=== PATIENT | female | born 1935 | race Caucasian/White ===

== ENCOUNTER 2017-01-22 06:18 | Day surgery (SDC) | payer MEDICARE, BC ==
[~2017-01-22 06:18] MED LIST: Midazolam 1 MG/ML 2 ML SDV ONE; fentaNYL 100 MCG/2 ML SDV ONE
[2017-01-22] MEDS ORDERED: fentaNYL 100 MCG/2 ML SDV IV ONE ×3 (06:19→07:36)
[2017-01-22] MEDS ORDERED: Midazolam 1 MG/ML 2 ML SDV IV ONE ×2 (06:19→07:36)
[2017-01-22] MEDS ORDERED: Sodium Chloride 0.9% 10 ML Syringe FLUSH PRN (06:22)
[2017-01-22] MEDS ORDERED: Dextrose 5%-0.45% NaCl 1,000 ML IV SCH (06:30)
--- NOTE | 2017-01-22 12:05 | OR ---
DATE: 01/22/2017 PROCEDURE: Esophagogastroduodenoscopy and multiple pinch biopsies. INSTRUMENT USED: GIF-H180 Olympus video panendoscope. PREMEDICATIONS: No oral topical anesthesia used. Fentanyl 100 mcg intravenous, Versed 1 mg intravenous. Nasal 2 L O2 cannula. The procedure was done under pulse oximetry, BP recording, and learning administrator. INDICATION: The patient with unexplained iron-deficiency anemia. Esophagogastroduodenoscopy is performed for detection of any active erosive lesions, malignancy also under consideration, H. pylori status to be determined, small bowel biopsies to be obtained for celiac disease if indicated, endoscopic hemostasis therapy if needed. DESCRIPTION OF PROCEDURE: The scope was passed with ease. Adequate visualization of the esophagus was made from proximal to distal areas. No upper esophageal lesions identified. No distal esophageal stricture. No uphill or downhill esophageal varices. No Felipa-Nichole tear. No evidence of erosive esophagitis by Griggs criteria. No esophageal polyp or tumor mass identified. Z-line was seen at around 40 cm distal to the oral verge, configuration consistent with grade 1 by ZAP classification. No proximal gastric varices noted. Gastric fundus examination by retroflexion showed no polypoid lesions, no gastric ulcer, malignant mass, or vascular ectasia identified. Duodenal bulb showed no ulcer. Visualized second part of the duodenum was unremarkable. Multiple pinch biopsies 4 in number were taken from different areas of the second part of the duodenum, and tissues were also obtained from the duodenal bulb at 9 and 12 o'clock positions and sent for histopathologic evidence of celiac disease. Multiple pinch biopsies were taken from the gastric antrum and proximal body and sent for PyloriTek test for H. pylori and histopathology. No bleeding was noted from any of the visualized areas at the completion of examination. Photographs were taken of the duodenal bulb, gastric antrum, fundus, and distal esophagus. IMPRESSION: Normal study. The patient tolerated the procedure well. [facility] /[id number]
[2017-01-22 12:23] VITALS: BP 123/47
--- NOTE | 2017-01-22 12:40 | LETTER ---
01/22/2017 Klaudia Braun MD [facility] [address] [place] [id number] RE: SHERLEY LORENZO KAVON : [address] Braun: Ms. Sherley Lorenzo had esophagogastroduodenoscopy done this morning and she tolerated the procedure well. I herewith send a copy of the endoscopy note and photographs for your review. Thank you. Sincerely, [facility] /[id number]
== END 2017-01-22 09:52 | disposition home or self-care (01) ==
LOC: DL.ENDO 06:18
PROVIDERS: ATTEND Internal Medicine Gastroenterology
DX: K29.50 Unspecified chronic gastritis without bleeding (principal); E66.9 Obesity, unspecified; I10 Essential (primary) hypertension; E78.5 Hyperlipidemia, unspecified; R73.9 Hyperglycemia, unspecified; E03.9 Hypothyroidism, unspecified; F41.9 Anxiety disorder, unspecified; K21.9 Gastro-esophageal reflux disease without esophagitis; Z90.49 Acquired absence of other specified parts of digestive tract; Z88.8 Allergy status to other drugs, medicaments and biological substances; Z87.891 Personal history of nicotine dependence; Z90.710 Acquired absence of both cervix and uterus; Z98.890 Other specified postprocedural states; Z68.30 Body mass index [BMI] 30.0-30.9, adult
CPT/HCPCS: 43239; 87077; J1642; J2250; J3010; J7042; J7050; 88305

== ENCOUNTER 2017-01-29 05:47 | Day surgery (SDC) | payer MEDICARE, BC ==
[2017-01-29] MEDS ORDERED: Dextrose 5%-0.45% NaCl 1,000 ML IV SCH (06:00)
[2017-01-29] MEDS ORDERED: fentaNYL 100 MCG/2 ML SDV ONE (06:17)
[2017-01-29] MEDS ORDERED: Midazolam 1 MG/ML 2 ML SDV ONE (06:17)
[2017-01-29] MEDS: Sodium Chloride 0.9% 10 ML Syringe FLUSH PRN ×2 (06:35→09:18)
[2017-01-29] MEDS ORDERED: fentaNYL 100 MCG/2 ML SDV IV ONE ×4 (07:01→07:28)
[2017-01-29] MEDS ORDERED: Midazolam 1 MG/ML 2 ML SDV IV ONE ×7 (07:02→07:26)
--- NOTE | 2017-01-29 08:16 | OR ---
DATE: 01/29/2017 PROCEDURE: Total colonoscopy. INSTRUMENT USED: PCF-H180 [place] Olympus video colonoscope. PREMEDICATIONS: Fentanyl 150 mcg intravenous, Versed 4 mg intravenous. Nasal O2 cannula. The procedure was done under pulse oximetry, BP recording, and rigging man. INDICATION: The patient with unexplained iron deficiency anemia. Colonoscopic examination is done for detection of any polypoid lesions and removal, endoscopic hemostasis therapy if needed. DESCRIPTION OF PROCEDURE: Initial rectal exam was unremarkable. Rigid anoscopy was normal. The colonoscope was passed with ease. Numerous scattered diverticula were noted in the distal left colon along with significant deformity, requiring some prolonged distal examination. The scope was then passed with ease up to the ileocecal area. No bleeding was noted from any of the visualized areas at the commencement of the examination. Photographs were taken of the normal-appearing cecum, identified by double-bulged ileocecal folds. No vascular ectasia. No large isolated ulcerations seen. No evidence of diffuse inflammatory bowel disease in the form of friability, contact bleeding, or ulcerations. No polyp or tumor mass identified. Probing the proximal sides of folds and flexures, using adequate distention and clearing up the stool material, withdrawal of the scope was made. Cecum to rectum time over 6 minutes. No bleeding was noted from any of the visualized areas at the completion of examination. IMPRESSION: Diverticulosis. The patient tolerated the procedure well. [facility] /[id number]
[2017-01-29 09:25] VITALS: BP 129/54
--- NOTE | 2017-01-29 11:34 | LETTER ---
01/29/2017 Klaudia Braun MD [facility] [address] [place] [address] RE: SHERLEY LORENZO KAVON : [address] Braun: Ms. Sherley Lorenzo had colonoscopic examination done this morning and she tolerated the procedure well. I herewith send a copy of the endoscopy note and photographs for your review. Thank you. Sincerely, [facility] /[id number]
== END 2017-01-29 09:35 | disposition home or self-care (01) ==
LOC: DL.ENDO 05:47
PROVIDERS: ATTEND Internal Medicine Gastroenterology
DX: K57.30 Diverticulosis of large intestine without perforation or abscess without bleeding (principal); I10 Essential (primary) hypertension; E78.5 Hyperlipidemia, unspecified; R73.9 Hyperglycemia, unspecified; K21.9 Gastro-esophageal reflux disease without esophagitis; E03.9 Hypothyroidism, unspecified; E66.9 Obesity, unspecified; Z88.8 Allergy status to other drugs, medicaments and biological substances; Z87.891 Personal history of nicotine dependence; Z90.49 Acquired absence of other specified parts of digestive tract; Z90.710 Acquired absence of both cervix and uterus; Z98.890 Other specified postprocedural states; Z68.26 Body mass index [BMI] 26.0-26.9, adult
CPT/HCPCS: 45378; J1642; J2250; J3010; J7042; J7050

== ENCOUNTER 2017-04-02 10:13 | Emergency (ER) | payer MEDICARE, BC ==
[2017-04-02] MEDS ORDERED: Sodium Chloride 0.9% 10 ML Syringe FLUSH PRN (10:17)
--- NOTE | 2017-04-02 10:17 | EDM.PDOC ---
ED HPI GENERAL MEDICAL PROBLEM - General Chief Complaint: Cardiovascular Problem Stated Complaint: HEART RYTHYM OUT OF WACK Time Seen by Provider: 04/02/17 10:16 Source of Information: Reports: Patient, RN, RN Notes Reviewed History Limitations: Reports: No Limitations - History of Present Illness INITIAL COMMENTS - FREE TEXT/NARRATIVE: Pt presents to ER with c/o fluttering in her chest. She states this began about 0400 today. She states she has atrial fibrillation that "flips in and out". She states She states she took a Lorazepam earlier and was able to go back to sleep , but the fluttering continues in the chest. She denies chest pain or sob, states just the fluttering feeling, which gives her gas and she then belches a lot. Onset: Today, Sudden Onset Date: 04/02/17 Onset Time: 04:00 Duration: Constant Location: Reports: Chest Quality: Reports: Dull, Other (fluttering) Severity: Mild Improves with: Reports: None Worsens with: Reports: None Associated Symptoms: Reports: No Other Symptoms - Related Data Allergies Allergy/AdvReac Type Severity Reaction Status Date / Time alendronate sodium Allergy Unknown UNKNOWN Verified 04/02/17 10:33 atorvastatin calcium Allergy Unknown MUSCLE Verified 04/02/17 10:33 [From Lipitor] ACHES/PAINS caffeine Allergy Unknown UNKNOWN Verified 04/02/17 10:33 esomeprazole magnesium Allergy Unknown UNKNOWN Verified 04/02/17 10:33 [From Nexium] lansoprazole [From Prevacid] Allergy Unknown Diarrhea Verified 04/02/17 10:33 pravastatin sodium Allergy Unknown MUSCLE Verified 04/02/17 10:33 [From Pravachol] CRAMPS/SPAMS Home Meds: Home Meds Aspirin [Adult Low Dose Aspirin EC] 81 mg PO DAILY 07/08/13 [History] Calcium Carbonate [Tums] 500 mg PO BEDTIME 07/08/13 [History] LORazepam 0.5 mg PO BEDTIME 07/08/13 [History] Levothyroxine Sodium 75 mcg PO DAILY 07/08/13 [History] Lisinopril 10 mg PO BID 07/08/13 [History] Omeprazole 20 mg PO PCBREAKFAST 07/08/13 [History] Potassium Chloride 20 meq PO BID 07/08/13 [History] Senna 1 tab PO DAILY 07/08/13 [History] Vit D3, Cholecalciferol,2000 Unit 2,000 units PO DAILY 07/08/13 [History] Warfarin Sodium [Jantoven] 1 - 1.5 tab PO ASDIRECTED 07/08/13 [History] Furosemide 20 mg PO DAILY 06/28/15 [History] Rosuvastatin Calcium [Crestor] 10 mg PO DAILY 06/28/15 [History] Acetaminophen [Tylenol Extra Strength] 500 mg PO Q6H 04/21/16 [History] Lidocaine/Prilocaine [Lidocaine-Prilocaine Cream] 1 applic TOP DAILY PRN [History] Sotalol [Betapace] 80 mg PO BID 04/21/16 [History] Vit A/Vit C/Vit E/Zinc/Copper [Preservision] 1 tab PO DAILY 01/22/17 [History] Calcium Carbonate/Vitamin D3 [Calcium 600 + Vit D 200] 1 tab PO DAILY 04/02/17 [ History] Folic Acid 1 mg PO DAILY 04/02/17 [History] Multivit with Min #53/FA/K/Q10 [Dekas Plus Softgel] 1 tab PO DAILY 04/02/17 [ History] Past Medical History HEENT History: Reports: Impaired Vision, Macular Degeneration, Other (See Below) Other HEENT History: ringing in the ears to have a MRI. RECEIVES EYE INJECTIONS FOR MAC DEGENERATION. Dry macular degeneration Cardiovascular History: Reports: Afib, Heart Murmur, High Cholesterol, Hypertension, Stents Respiratory History: Reports: Other (See Below) Other Respiratory History: Lung cancer Gastrointestinal History: Reports: Diverticulosis, GERD Genitourinary History: Reports: None WEAPONS SPECIALIST History: Reports: , Spontaneous Musculoskeletal History: Reports: Arthritis, Back Pain, Chronic, Neck Pain, Chronic, Other (See Below) Other Musculoskeletal History: LYMPHEDEMA OF BILAT LE Neurological History: Reports: None Psychiatric History: Reports: Anxiety Endocrine/Metabolic History: Reports: Hypothyroidism Hematologic History: Reports: Anemia Immunologic History: Reports: None Oncologic (Cancer) History: Reports: Lung Dermatologic History: Reports: Other (See Below) Other Dermatologic History: lipidema - Infectious Disease History Infectious Disease History: Reports: Chicken Pox, Measles, Mumps, Shingles - Past Surgical History Head Surgeries/Procedures: Reports: None HEENT Surgical History: Reports: Adenoidectomy, Tonsillectomy Cardiovascular Surgical History: Reports: Carotid Endarterectomy, Other (See Below) Other Cardiovascular Surgeries/Procedures: Edema feet Respiratory Surgical History: Reports: Lung Resection Other Respiratory Surgeries/Procedures: R) lung resection GI Surgical History: Reports: Appendectomy, Colonoscopy, EGD Female Surgical History: Reports: Section, Hysterectomy Endocrine Surgical History: Reports: None Neurological Surgical History: Reports: None Musculoskeletal Surgical History: Reports: Other (See Below) Other Musculoskeletal Surgeries/Procedures:: Knee surgery Oncologic Surgical History: Reports: Other (See Below) Other Oncologic Surgeries/Procedures: SKIN BIOPSY Dermatological Surgical History: Reports: Skin Biopsy Social & Family History - Family History Family Medical History: Unobtainable Cardiac: Reports: Afib, Hypertension Oncologic: Reports: Bone, Lung - Tobacco Use Smoking Status *Q: Former Smoker Years of Tobacco use: 15 Packs/Tins Daily: 1 Used Tobacco, but Quit: Yes Month Tobacco Last Used: 50 years ago Second Hand Smoke Exposure: Yes - Caffeine Use Caffeine Use: Reports: None - Alcohol Use Days Per Week of Alcohol Use: 1 Number of Drinks Per Day: 3 Total Drinks Per Week: 3 - Recreational Drug Use Recreational Drug Use: No Drug Use in Last 12 Months: No ED ROS GENERAL - Review of Systems Review Of Systems: ROS reveals no pertinent complaints other than HPI. ED EXAM, GENERAL - Physical Exam Exam: See Below Exam Limited By: No Limitations General Appearance: Alert, WD/WN, No Apparent Distress Eye Exam: Bilateral Eye: EOMI, Normal Inspection Ears: Normal External Exam, Hearing Grossly Normal Nose: Normal Inspection Throat/Mouth: Normal Inspection, Normal Voice, No Airway Compromise Head: Atraumatic, Normocephalic Neck: Normal Inspection, Supple, Non-Tender, Full Range of Motion Respiratory/Chest: No Respiratory Distress, Lungs Clear, Normal Breath Sounds, No Accessory Muscle Use, Chest Non-Tender Cardiovascular: Tachycardia, Irregularly Irregular, Other (bilateral lymphedema) . No: Regular Rate, Rhythm, No Edema Peripheral Pulses: 1+: Radial (L), Radial (R), Dorsalis Pedis (L), Dorsalis Pedis (R) GI/Abdominal: Normal Bowel Sounds, Soft, Non-Tender, No Organomegaly, No Distention, No Abnormal Bruit, No Mass (Female) Exam: Deferred Rectal (Female) Exam: Deferred Back Exam: Normal Inspection, Full Range of Motion Extremities: Normal Inspection, Normal Range of Motion, Non-Tender, No Pedal Edema, Normal Capillary Refill Neurological: Alert, Oriented, CN II-XII Intact, Normal Cognition, Normal Gait, No Motor/Sensory Deficits Psychiatric: Normal Affect, Normal Mood Skin Exam: Warm, Dry, Intact, Normal Color, No Rash Lymphatic: Other (bilateral lymphedema to the lower extremities) EKG INTERPRETATION EKG Date: 04/02/17 Time: 10:30 Rhythm: A-Fib Rate (Beats/Min): 123 Comparison: Change From Previous EKG Course - Vital Signs Last Recorded V/S: Last Vital Signs Temp 98.2 F 04/02/17 10:35 Pulse 136 H 04/02/17 10:35 Resp 16 04/02/17 10:35 BP 132/92 H 04/02/17 10:35 Pulse Ox 100 04/02/17 10:35 - Orders/Labs/Meds Orders: Active Orders 24 hr Category Date Time Status EKG Documentation Completion [RC] STAT Care 04/02/17 10:17 Active Peripheral IV Care [RC] . DIRECTED Care 04/02/17 10:18 Active Sodium Chloride 0.9% [Saline Flush] Med 04/02/17 10:17 Active 10 ml FLUSH ASDIRECTED PRN Peripheral IV Insertion Adult [OM.PC] Stat Oth 04/02/17 10:18 Ordered Medication Orders Sodium Chloride (Saline Flush) 10 ml FLUSH ASDIRECTED PRN PRN Reason: Keep Vein Open Last Admin: 04/02/17 10:50 Dose: 10 ml Labs: Laboratory Tests 04/02/17 04/02/17 04/02/17 Range/Units 10:33 10:33 11:10 WBC 8.2 (5.0-10.0) 10^3/uL RBC 4.26 (4.2-5.4) 10^6/uL Hgb 11.0 L (12.0-16.0) g/dL Hct 34.3 L (37.0-47.0) % MCV 80.5 D (80-100) fL MCH 25.8 L (27.0-34.0) pg MCHC 32.1 L (33.0-35.0) g/dL Plt Count 242 (150-450) 10^3/uL Neut % (Auto) 66.1 (42.2-75.2) % Lymph % (Auto) 23.7 (20.5-50.1) % [place] % (Auto) 8.4 H (2-8) % Eos % (Auto) 1.3 (1.0-3.0) % Baso % (Auto) 0.5 (0.0-1.0) % Sodium 137 (135-145) mmol/L Potassium 3.7 (3.6-5.0) mmol/L Chloride 102 (101-111) mmol/L Carbon Dioxide 25.0 (21.0-31.0) mmol/L Anion Gap 13.7 BUN 21 H (7-18) mg/dL Creatinine 0.8 (0.6-1.3) mg/dL Est Cr Clr Drug Dosing 44.08 mL/min Estimated GFR (MDRD) > 60 BUN/Creatinine Ratio 26.25 Glucose 130 H (74-105) mg/dL Calcium 9.3 (8.4-10.2) mg/dl Total Bilirubin 1.0 (0.2-1.0) mg/dL AST 18 (10-42) IU/L ALT 16 (10-60) IU/L Alkaline Phosphatase 45 (42-121) IU/L Troponin I < 0.02 (0.00-0.02) ng/ml Total Protein 7.1 (6.7-8.2) g/dl Albumin 4.1 (3.2-5.5) g/dl Globulin 3.0 Albumin/Globulin Ratio 1.37 Urine Color Yellow (YELLOW) Urine Appearance Clear (CLEAR) Urine pH 6.5 (5.0-9.0) Ur Specific [place] 1.010 (1.005-1.030) Urine Protein Negative (NEGATIVE) Urine Glucose (UA) Negative (NEGATIVE) Urine Ketones Negative (NEGATIVE) Urine Occult Blood Trace-intact H (NEGATIVE) Urine Nitrite Negative (NEGATIVE) Urine Bilirubin Negative (NEGATIVE) Urine Urobilinogen 0.2 (0.2-1.0) mg/dL Ur Leukocyte Esterase Negative (NEGATIVE) Urine RBC Not seen /HPF Urine WBC Not seen (0-5/HPF) /HPF Ur Epithelial Cells Rare /HPF Urine Bacteria Not seen (0-FEW/HPF) /HPF Urine Mucus Not seen /LPF Meds: Medications Generic Name Dose Route Start Last Admin Trade Name Freq PRN Reason Stop Dose Admin Sodium Chloride 10 ml 04/02/17 10:17 04/02/17 10:50 Saline Flush FLUSH 10 ml ASDIRECTED PRN Administration Keep Vein Open Discontinued Medications Generic Name Dose Route Start Last Admin Trade Name Darrell PRN Reason Stop Dose Admin Diltiazem HCl 20 mg 04/02/17 10:34 04/02/17 10:49 Diltiazem IVPUSH 04/02/17 10:35 20 mg ONETIME ONE Administration - Radiology Interpretation Free Text/Narrative:: Chest xray: No acute new cardiopulmonary abnormality since AP portable film of Apr 22, 2016. See rad report - Re-Assessments/Exams Free Text/Narrative Re-Assessment/Exam: 04/02/17 12:31 HR decreased from 120-130 to 80-90 after cardizem bolus. Rhythm continues to be atrial fibrillation. Patient states she feels minimal fluttering. She states she will return to the ER with any further problems. Departure - Departure Time of Disposition: 12:33 Disposition: Home, Self-Care 01 Condition: Fair Clinical Impression: Atrial fibrillation with RVR Atrial fibrillation Qualifiers: Atrial fibrillation type: paroxysmal Qualified Code(s): I48.0 - Paroxysmal atrial fibrillation Instructions: Atrial Fibrillation, [id number] Forms: ED Department Discharge Additional Instructions: Continue with home medications as directed. Follow up with your primary care facility this week. Return to the ER with any worsening problems, or returning problems. Rest today. - My Orders Last 24 Hours: My Active Orders 04/02/17 10:17 EKG Documentation Completion [RC] STAT Sodium Chloride 0.9% [Saline Flush] 10 ml FLUSH ASDIRECTED PRN 04/02/17 10:18 Peripheral IV Care [RC] . DIRECTED Peripheral IV Insertion Adult [OM.PC] Stat - Assessment/Plan Last 24 Hours: My Active Orders 04/02/17 10:17 EKG Documentation Completion [RC] STAT Sodium Chloride 0.9% [Saline Flush] 10 ml FLUSH ASDIRECTED PRN 04/02/17 10:18 Peripheral IV Care [RC] . DIRECTED Peripheral IV Insertion Adult [OM.PC] Stat
[2017-04-02] MEDS ORDERED: Diltiazem 25 MG/5 ML SDV IVPUSH ONE (10:34)
[2017-04-02 10:42] VITALS: BP 132/92
[2017-04-02 11:01] LABS: ANION GAP 13.7; CHLORIDE,CL 102 mmol/L (101-111); SODIUM,NA 137 mmol/L (135-145)
--- NOTE | 2017-04-02 11:24 | CR ---
Clinical history: 82-year-old female chest pain. Interpretation: Chronic asymmetric elevation right hemidiaphragm this patient with supraclavicular ce ntral venous chemoinfusion And external youth nutritional monitor leads. Calcifications arch of the ectatic aorta. Normal cardiac silhouette. No cephalization of vascular flow, signs of alveolar edema or dependent new pleural fluid accumulatio n since 22 April 2016 exam. No new lung mass, hilar lymphadenopathy or focal lobar pneumonia. No pneumothorax. CONCLUSION: No acute new cardiopulmonary abnormality since AP portable film of 22 April 2016.
--- NOTE | 2017-04-04 16:43 | EKG ---
04/02/2017 - VIJAY LORENZO - FINDINGS: This 12-lead EKG shows atrial fibrillation with an average rate of 123. Normal axis. Borderline prolonged QT interval. No acute ST-T wave changes. [facility] /[id number] MTDD
== END 2017-04-02 12:47 | disposition home or self-care (01) ==
LOC: DL.ED 10:13
DX: I48.0 Paroxysmal atrial fibrillation (principal); I10 Essential (primary) hypertension; E78.00 Pure hypercholesterolemia, unspecified; K21.9 Gastro-esophageal reflux disease without esophagitis; E03.9 Hypothyroidism, unspecified; Z87.891 Personal history of nicotine dependence; Z79.82 Long term (current) use of aspirin; Z79.899 Other long term (current) drug therapy; Z79.01 Long term (current) use of anticoagulants; Z88.8 Allergy status to other drugs, medicaments and biological substances; Z91.048 Other nonmedicinal substance allergy status
CPT/HCPCS: 36415; 71046; 80053; 81001; 84484; 85025; 93005; 93010; 96374; 99285; J1642; J3490; J7050; 99284

== ENCOUNTER 2017-08-03 00:41 | Emergency (ER) | payer MEDICARE, BC ==
[2017-08-03 00:49] VITALS: BP 183/72
[2017-08-03] MEDS ORDERED: Sodium Chloride 0.9% 10 ML Syringe FLUSH PRN (00:51)
[2017-08-03] MEDS ORDERED: Silver Nitrate Applicator Each TOP ONE (01:14)
[2017-08-03 01:30] LABS: CHLORIDE,CL 100 mmol/L (101-111); SODIUM,NA 135 mmol/L (135-145)
--- NOTE | 2017-08-03 01:42 | EDM.PDOC ---
ED HPI GENERAL MEDICAL PROBLEM - General Chief Complaint: ENT Problem Stated Complaint: NOSE WONT QUIT BLEEDING Time Seen by Provider: 08/03/17 01:11 Source of Information: Reports: Patient, RN, RN Notes Reviewed History Limitations: Reports: No Limitations - History of Present Illness INITIAL COMMENTS - FREE TEXT/NARRATIVE: Pt presents to the ER with c/o epistaxis that began at 2130. Pt states the nose bleed stopped and began again a few times. Patient states she takes Coumadin for atrial fibrillation. Pt states she has not had a nose bleed like this before. Onset: Today, Sudden Onset Date: 08/02/17 Onset Time: 21:30 - Related Data Allergies Allergy/AdvReac Type Severity Reaction Status Date / Time alendronate sodium Allergy Unknown UNKNOWN Verified 08/03/17 01:02 atorvastatin calcium Allergy Unknown MUSCLE Verified 08/03/17 01:02 [From Lipitor] ACHES/PAINS caffeine Allergy Unknown UNKNOWN Verified 08/03/17 01:02 esomeprazole magnesium Allergy Unknown UNKNOWN Verified 08/03/17 01:02 [From Nexium] lansoprazole [From Prevacid] Allergy Unknown Diarrhea Verified 08/03/17 01:02 pravastatin sodium Allergy Unknown MUSCLE Verified 08/03/17 01:02 [From Pravachol] CRAMPS/SPAMS Home Meds: Home Meds Aspirin [Adult Low Dose Aspirin EC] 81 mg PO DAILY 07/08/13 [History] Calcium Carbonate [Tums] 500 mg PO BEDTIME 07/08/13 [History] LORazepam 0.5 mg PO BEDTIME 07/08/13 [History] Levothyroxine Sodium 75 mcg PO DAILY 07/08/13 [History] Lisinopril 10 mg PO BID 07/08/13 [History] Omeprazole 20 mg PO PCBREAKFAST 07/08/13 [History] Potassium Chloride 20 meq PO BID 07/08/13 [History] Senna 1 tab PO DAILY 07/08/13 [History] Vit D3, Cholecalciferol,2000 Unit 2,000 units PO DAILY 07/08/13 [History] Warfarin Sodium [Jantoven] 1 - 1.5 tab PO ASDIRECTED 07/08/13 [History] Furosemide 20 mg PO DAILY 06/28/15 [History] Rosuvastatin Calcium [Crestor] 10 mg PO DAILY 06/28/15 [History] Acetaminophen [Tylenol Extra Strength] 500 mg PO Q6H 04/21/16 [History] Lidocaine/Prilocaine [Lidocaine-Prilocaine Cream] 1 applic TOP DAILY PRN [History] Sotalol [Betapace] 80 mg PO BID 04/21/16 [History] Vit A/Vit C/Vit E/Zinc/Copper [Preservision] 1 tab PO DAILY 01/22/17 [History] Calcium Carbonate/Vitamin D3 [Calcium 600 + Vit D 200] 1 tab PO DAILY 04/02/17 [ History] Folic Acid 1 mg PO DAILY 04/02/17 [History] Multivit with Min #53/FA/K/Q10 [Dekas Plus Softgel] 1 tab PO DAILY 04/02/17 [ History] Past Medical History HEENT History: Reports: Impaired Vision, Macular Degeneration, Other (See Below) Other HEENT History: ringing in the ears to have a MRI. RECEIVES EYE INJECTIONS FOR MAC DEGENERATION. Dry macular degeneration Cardiovascular History: Reports: Afib, Heart Murmur, High Cholesterol, Hypertension, Stents Respiratory History: Reports: Other (See Below) Other Respiratory History: Lung cancer Gastrointestinal History: Reports: Diverticulosis, GERD Genitourinary History: Reports: None [employer] History: Reports: , Spontaneous Musculoskeletal History: Reports: Arthritis, Back Pain, Chronic, Neck Pain, Chronic, Other (See Below) Other Musculoskeletal History: LYMPHEDEMA OF BILAT LE Neurological History: Reports: None Psychiatric History: Reports: Anxiety Endocrine/Metabolic History: Reports: Hypothyroidism Hematologic History: Reports: Anemia Immunologic History: Reports: None Oncologic (Cancer) History: Reports: Lung Dermatologic History: Reports: Other (See Below) Other Dermatologic History: lipidema - Infectious Disease History Infectious Disease History: Reports: Chicken Pox, Measles, Mumps, Shingles - Past Surgical History Head Surgeries/Procedures: Reports: None HEENT Surgical History: Reports: Adenoidectomy, Tonsillectomy Cardiovascular Surgical History: Reports: Carotid Endarterectomy, Other (See Below) Other Cardiovascular Surgeries/Procedures: Edema feet Respiratory Surgical History: Reports: Lung Resection Other Respiratory Surgeries/Procedures: R) lung resection GI Surgical History: Reports: Appendectomy, Colonoscopy, EGD Female Surgical History: Reports: Section, Hysterectomy Endocrine Surgical History: Reports: None Neurological Surgical History: Reports: None Musculoskeletal Surgical History: Reports: Other (See Below) Other Musculoskeletal Surgeries/Procedures:: Knee surgery Oncologic Surgical History: Reports: Other (See Below) Other Oncologic Surgeries/Procedures: SKIN BIOPSY Dermatological Surgical History: Reports: Skin Biopsy Social & Family History - Family History Family Medical History: Unobtainable Cardiac: Reports: Afib, Hypertension Oncologic: Reports: Bone, Lung - Tobacco Use Smoking Status *Q: Never Smoker - Caffeine Use Caffeine Use: Reports: None - Recreational Drug Use Recreational Drug Use: No ED ROS ENT - Review of Systems Review Of Systems: ROS reveals no pertinent complaints other than HPI. ED EXAM, ENT - Physical Exam Exam: See Below Exam Limited By: No Limitations General Appearance: Alert, WD/WN, Mild Distress Eye Exam: Bilateral Eye: EOMI, Normal Inspection Ears: Normal External Exam, Hearing Grossly Normal Nose: Active Bleeding (right nare) Mouth/Throat: Normal Inspection, Normal Gums, Normal Lips, Normal Oropharynx ( blood clots noted in the back of the throat), Normal Teeth Head: Atraumatic, Normocephalic Neck: Normal Inspection, Supple, Non-Tender, Full Range of Motion Respiratory/Chest: No Respiratory Distress, Lungs Clear, No Accessory Muscle Use , Chest Non-Tender, Decreased Breath Sounds Cardiovascular: Regular Rate, Rhythm, No Edema, No Gallop, No JVD, No Murmur, No Rub, Irregularly Irregular GI/Abdominal: Normal Bowel Sounds, Soft, Non-Tender (Female) Exam: Deferred Rectal (Female) Exam: Deferred Back: Normal Inspection, Full Range of Motion Extremities: Normal Inspection, Normal Range of Motion, Non-Tender, No Pedal Edema, Normal Capillary Refill Neurological: Alert, Oriented, CN II-XII Intact, Normal Cognition, Normal Gait, Normal Reflexes, No Motor/Sensory Deficits Psychiatric: Normal Affect, Normal Mood Skin: Warm, Dry, Intact, Normal Color, No Rash Lymphatic: No Adenopathy ED ENT PROCEDURES - Epistaxis Procedure Indication: Epistaxis Recent anticoagulants/antiplatlets: Yes Uncontrolled HTN: No Recent septal/nasal surgery: No Site of bleeding: Right Nare Clearing of clots: Patient Blew Nose Ice pack to area: Yes Chemical cautery: Silver Nitrate Topical Anterior Packing: Inflatable Nasal Tampon Posterior packing: Long Inflatable Nasal Tampon Complications: No Course - Vital Signs Last Recorded V/S: Last Vital Signs Temp 96.8 F 08/03/17 00:45 Pulse 77 08/03/17 00:45 Resp 17 08/03/17 00:45 BP 183/72 H 08/03/17 00:45 Pulse Ox 100 08/03/17 00:45 - Orders/Labs/Meds Orders: Active Orders 24 hr Category Date Time Status Peripheral IV Care [RC] . DIRECTED Care 08/03/17 00:51 Active Peripheral IV Insertion Adult [OM.PC] Stat Oth 08/03/17 00:51 Ordered Labs: Laboratory Tests 08/03/17 08/03/17 08/03/17 Range/Units 01:03 01:03 01:03 WBC 8.3 (5.0-10.0) 10^3/uL RBC 4.62 (4.2-5.4) 10^6/uL Hgb 12.1 (12.0-16.0) g/dL Hct 37.6 (37.0-47.0) % MCV 81.4 (80-100) fL MCH 26.2 L (27.0-34.0) pg MCHC 32.2 L (33.0-35.0) g/dL Plt Count 203 (150-450) 10^3/uL Neut % (Auto) 60.5 (42.2-75.2) % Lymph % (Auto) 26.2 (20.5-50.1) % [place] % (Auto) 10.0 H (2-8) % Eos % (Auto) 2.8 (1.0-3.0) % Baso % (Auto) 0.5 (0.0-1.0) % PT 31.6 H (9.0-12.0) SEC INR 3.3 H (0.9-1.2) Sodium 135 (135-145) mmol/L Potassium 3.7 (3.6-5.0) mmol/L Chloride 100 L (101-111) mmol/L Carbon Dioxide 26.0 (21.0-31.0) mmol/L Anion Gap 12.7 BUN 22 H (7-18) mg/dL Creatinine 0.7 (0.6-1.3) mg/dL Est Cr Clr Drug Dosing 50.37 mL/min Estimated GFR (MDRD) > 60 BUN/Creatinine Ratio 31.42 Glucose 125 H (74-105) mg/dL Calcium 8.9 (8.4-10.2) mg/dl Total Bilirubin 1.1 H (0.2-1.0) mg/dL AST 22 (10-42) IU/L ALT 17 (10-60) IU/L Alkaline Phosphatase 51 (42-121) IU/L Total Protein 7.1 (6.7-8.2) g/dl Albumin 4.2 (3.2-5.5) g/dl Globulin 2.9 Albumin/Globulin Ratio 1.45 Meds: Medications Discontinued Medications Generic Name Dose Route Start Last Admin Trade Name Freq PRN Reason Stop Dose Admin Amoxicillin/Clavulanate Potassium 1 tab 08/03/17 02:04 08/03/17 02:28 Augmentin 875 Mg/125 Mg PO 08/03/17 02:05 1 tab ONETIME ONE Administration Lidocaine/Epinephrine 30 ml 08/03/17 02:03 08/03/17 02:30 Xylocaine 1% With Epinephrine 1:100,000 INJECT 08/03/17 02:04 30 ml ONETIME ONE Administration Oxymetazoline HCl 1 ml 08/03/17 02:02 08/03/17 02:29 Afrin Original 0.05% Nasal Jerome LIDIA 08/03/17 02:03 1 ml ONETIME ONE Administration Silver Nitrate 1 each 08/03/17 01:14 08/03/17 01:21 Silver Nitrate TOP 08/03/17 01:15 1 each ONETIME ONE Administration Sodium Chloride 10 ml 08/03/17 00:51 Saline Flush FLUSH ASDIRECTED PRN Keep Vein Open Departure - Departure Time of Disposition: 02:39 Disposition: Home, Self-Care 01 Condition: Fair Clinical Impression: Epistaxis not due to trauma - Discharge Information Instructions: Nosebleed, Adult, [id number] Forms: ED Department Discharge Additional Instructions: Call Dr. Aguiar's office on Saturday to see if he will see you. If Dr. Aguiar will not see you, call [facility] and ask for ENT. Tell them you were seen in ER for a nose bleed on Saturday night, a nasal balloon was placed and you need to be evaluated. Use vaseline or saline gel to lubricate the nostrils May use Afrin spray when nosebleed begins. May use up to 4 times. If the nosebleed does not stop after 4 uses, go to the ER. Hold your Warfarin dose for tomorrow. May resume on Saturday. Follow up with your primary care facility regarding your PT/INR (Warfarin level) . - My Orders Last 24 Hours: My Active Orders 08/03/17 00:51 Peripheral IV Care [RC] . DIRECTED Peripheral IV Insertion Adult [OM.PC] Stat - Assessment/Plan Last 24 Hours: My Active Orders 08/03/17 00:51 Peripheral IV Care [RC] . DIRECTED Peripheral IV Insertion Adult [OM.PC] Stat
[2017-08-03] MEDS ORDERED: Oxymetazoline 0.05% Nasal Spray 15 ML Bottle NAS ONE (02:02)
[2017-08-03] MEDS ORDERED: Lidocaine 1% with EPINEPHrine 1:100,000 30 ML MDV INJECT ONE (02:03)
[2017-08-03] MEDS ORDERED: Amoxicillin/Clavulanate K 875-125 MG Tab PO ONE (02:04)
== END 2017-08-03 02:39 | disposition home or self-care (01) ==
LOC: DL.ED 00:41
DX: R04.0 Epistaxis (principal); Z88.8 Allergy status to other drugs, medicaments and biological substances; Z79.82 Long term (current) use of aspirin; Z79.899 Other long term (current) drug therapy; Z79.01 Long term (current) use of anticoagulants; E78.00 Pure hypercholesterolemia, unspecified; I10 Essential (primary) hypertension; E03.9 Hypothyroidism, unspecified
CPT/HCPCS: 30901; 36415; 80053; 85025; 85610; 99283; A9270

== ENCOUNTER 2018-07-12 11:25 | Emergency (ER) | payer MEDICARE, BC ==
[2018-07-12 11:35] VITALS: BP 154/59
[2018-07-12] MEDS ORDERED: Iopamidol 612 MG/ML 75 ML Bottle IVPUSH ONE (12:35)
[2018-07-12 12:59] LABS: ANION GAP 14.5
--- NOTE | 2018-07-12 14:31 | EDM.PDOC ---
Scribed by Christina Bacon 07/12/18 1431 for Chuyita Burnett NP ED HPI GENERAL MEDICAL PROBLEM - General Chief Complaint: General Stated Complaint: LIVER BIOPSY SATURDAY/PAIN NOW TOLD HER 2 B SEEN Time Seen by Provider: 07/12/18 11:57 Source of Information: Reports: Patient, RN, RN Notes Reviewed History Limitations: Reports: No Limitations - History of Present Illness INITIAL COMMENTS - FREE TEXT/NARRATIVE: Patient presents to ER with complaint of right upper quadrant pain. States liver biopsy on =07/07/18. She developed pain at 1900 last night. She was up all night. She took Tylenol one hour ago. The pain at this time is a 0/ 10 when laying still. It is worse with deep breathing and movement. She has been off Coumadin for 10 days. She restarted it 2 days ago. Onset: Gradual Duration: Getting Worse Location: Reports: Abdomen Quality: Reports: Ache Severity: Moderate Improves with: Reports: None Worsens with: Reports: None Associated Symptoms: Reports: No Other Symptoms Right Upper Abdomen Pain Score (Numeric/FACES): 0 - Related Data Allergies Allergy/AdvReac Type Severity Reaction Status Date / Time alendronate sodium Allergy Unknown UNKNOWN Verified 08/03/17 01:02 atorvastatin calcium Allergy Unknown MUSCLE Verified 08/03/17 01:02 [From Lipitor] ACHES/PAINS caffeine Allergy Unknown UNKNOWN Verified 08/03/17 01:02 esomeprazole magnesium Allergy Unknown UNKNOWN Verified 08/03/17 01:02 [From Nexium] lansoprazole [From Prevacid] Allergy Unknown Diarrhea Verified 08/03/17 01:02 pravastatin sodium Allergy Unknown MUSCLE Verified 08/03/17 01:02 [From Pravachol] CRAMPS/SPAMS carboplatin Allergy Hives Verified 07/12/18 11:45 pantoprazole [From Protonix] Allergy Other Verified 07/12/18 11:45 Home Meds: Home Meds Aspirin [Adult Low Dose Aspirin EC] 81 mg PO DAILY 07/08/13 [History] Calcium Carbonate [Tums] 500 mg PO BEDTIME 07/08/13 [History] LORazepam 0.5 mg PO BEDTIME 07/08/13 [History] Levothyroxine Sodium 100 mcg PO DAILY 07/08/13 [History] Lisinopril 10 mg PO BID 07/08/13 [History] Omeprazole 20 mg PO PCBREAKFAST 07/08/13 [History] Potassium Chloride 20 meq PO BID 07/08/13 [History] Senna 1 tab PO DAILY 07/08/13 [History] Vit D3, Cholecalciferol,2000 Unit 2,000 units PO DAILY 07/08/13 [History] Warfarin Sodium [Jantoven] 4 mg PO ASDIRECTED 07/08/13 [History] Furosemide 20 mg PO DAILY 06/28/15 [History] Rosuvastatin Calcium [Crestor] 10 mg PO DAILY 06/28/15 [History] Acetaminophen [Tylenol Extra Strength] 500 mg PO Q6H 04/21/16 [History] Lidocaine/Prilocaine [Lidocaine-Prilocaine Cream] 1 applic TOP DAILY PRN [History] Sotalol [Betapace] 80 mg PO BID 04/21/16 [History] Vit A/Vit C/Vit E/Zinc/Copper [Preservision] 1 tab PO DAILY 01/22/17 [History] Calcium Carbonate/Vitamin D3 [Calcium 600 + Vit D 200] 1 tab PO DAILY 04/02/17 [ History] Folic Acid 1 mg PO DAILY 04/02/17 [History] Multivit with Min #53/FA/K/Q10 [Dekas Plus Softgel] 1 tab PO DAILY 04/02/17 [ History] Past Medical History HEENT History: Reports: Impaired Vision, Macular Degeneration, Other (See Below) Other HEENT History: ringing in the ears to have a MRI. RECEIVES EYE INJECTIONS FOR MAC DEGENERATION. Dry macular degeneration Cardiovascular History: Reports: Afib, Heart Murmur, High Cholesterol, Hypertension, Stents Respiratory History: Reports: Other (See Below) Other Respiratory History: Lung cancer Gastrointestinal History: Reports: Diverticulosis, GERD Genitourinary History: Reports: None [employer] History: Reports: , Spontaneous Musculoskeletal History: Reports: Arthritis, Back Pain, Chronic, Neck Pain, Chronic, Other (See Below) Other Musculoskeletal History: LYMPHEDEMA OF BILAT LE Neurological History: Reports: None Psychiatric History: Reports: Anxiety Endocrine/Metabolic History: Reports: Hypothyroidism Hematologic History: Reports: Anemia Immunologic History: Reports: None Oncologic (Cancer) History: Reports: Liver, Lung, Other (See Below) Other Oncologic History: pelvic area Dermatologic History: Reports: Other (See Below) Other Dermatologic History: lipidema - Infectious Disease History Infectious Disease History: Reports: Chicken Pox, Measles, Mumps, Shingles - Past Surgical History Head Surgeries/Procedures: Reports: None HEENT Surgical History: Reports: Adenoidectomy, Tonsillectomy Cardiovascular Surgical History: Reports: Carotid Endarterectomy, Other (See Below) Other Cardiovascular Surgeries/Procedures: Edema feet Respiratory Surgical History: Reports: Lung Resection Other Respiratory Surgeries/Procedures: R) lung resection GI Surgical History: Reports: Appendectomy, Colonoscopy, EGD Female Surgical History: Reports: Section, Hysterectomy Endocrine Surgical History: Reports: None Neurological Surgical History: Reports: None Musculoskeletal Surgical History: Reports: Other (See Below) Other Musculoskeletal Surgeries/Procedures:: Knee surgery Oncologic Surgical History: Reports: Other (See Below) Other Oncologic Surgeries/Procedures: SKIN BIOPSY Dermatological Surgical History: Reports: Skin Biopsy Social & Family History - Family History Family Medical History: Unobtainable Cardiac: Reports: Afib, Hypertension Oncologic: Reports: Bone, Lung - Tobacco Use Smoking Status *Q: Former Smoker Used Tobacco, but Quit: Yes Month/Year Tobacco Last Used: ? - Caffeine Use Caffeine Use: Reports: None - Recreational Drug Use Recreational Drug Use: No ED ROS GENERAL - Review of Systems Review Of Systems: ROS reveals no pertinent complaints other than HPI. ED EXAM, GENERAL - Physical Exam Exam: See Below Exam Limited By: No Limitations General Appearance: Alert, WD/WN, No Apparent Distress Eye Exam: Bilateral Eye: EOMI, Normal Inspection, PERRL Ears: Normal External Exam, Normal Canal, Hearing Grossly Normal, Normal TMs Nose: Normal Inspection, Normal Mucosa, No Blood Throat/Mouth: Normal Inspection, Normal Lips, Normal Teeth, Normal Gums, Normal Oropharynx, Normal Voice, No Airway Compromise Head: Atraumatic, Normocephalic Neck: Normal Inspection, Supple, Non-Tender, Full Range of Motion Respiratory/Chest: Crackles (basess bilaterally) Cardiovascular: Normal Peripheral Pulses, Regular Rate, Rhythm, No Edema, No Gallop, No JVD, No Murmur, No Rub GI/Abdominal: Tender (right upper quadrant) (Female) Exam: Deferred Rectal (Female) Exam: Deferred Back Exam: Normal Inspection, Full Range of Motion, NT Extremities: Normal Inspection, Normal Range of Motion, Non-Tender, Normal Capillary Refill, No Pedal Edema Neurological: Alert, Oriented, CN II-XII Intact, Normal Cognition, Normal Gait, Normal Reflexes, No Motor/Sensory Deficits Psychiatric: Normal Affect, Normal Mood Skin Exam: Warm, Dry, Intact, Normal Color, No Rash Lymphatic: No Adenopathy Course - Vital Signs Last Recorded V/S: Last Vital Signs Temp 97.3 F 07/12/18 11:31 Pulse 70 07/12/18 11:31 Resp 16 07/12/18 11:31 BP 154/59 H 07/12/18 11:31 Pulse Ox 100 07/12/18 11:31 - Orders/Labs/Meds Orders: Active Orders 24 hr Category Date Time Status Implanted Port Access [RC] DAILY Care 07/12/18 12:06 Active Labs: Laboratory Tests 07/12/18 07/12/18 07/12/18 Range/Units 12:16 12:16 12:16 WBC 6.9 (5.0-10.0) 10^3/uL RBC 3.75 L (4.2-5.4) 10^6/uL Hgb 10.1 L D (12.0-16.0) g/dL Hct 31.3 L (37.0-47.0) % MCV 83.5 (80-100) fL MCH 26.9 L (27.0-34.0) pg MCHC 32.3 L (33.0-35.0) g/dL Plt Count 161 (150-450) 10^3/uL Neut % (Auto) 66.0 (42.2-75.2) % Lymph % (Auto) 18.4 L (20.5-50.1) % [place] % (Auto) 11.2 H (2-8) % Eos % (Auto) 3.8 H (1.0-3.0) % Baso % (Auto) 0.6 (0.0-1.0) % PT 10.7 D (9.0-12.0) SEC INR 1.1 (0.9-1.2) Sodium 137 (135-145) mmol/L Potassium 3.5 L (3.6-5.0) mmol/L Chloride 106 (101-111) mmol/L Carbon Dioxide 20.0 L (21.0-31.0) mmol/L Anion Gap 14.5 BUN 30 H (7-18) mg/dL Creatinine 1.1 (0.6-1.3) mg/dL Est Cr Clr Drug Dosing 32.87 mL/min Estimated GFR (MDRD) 47 BUN/Creatinine Ratio 27.27 Glucose 186 H (74-105) mg/dL Calcium 9.0 (8.4-10.2) mg/dl Total Bilirubin 0.9 (0.2-1.0) mg/dL AST 19 (10-42) IU/L ALT 13 (10-60) IU/L Alkaline Phosphatase 49 (42-121) IU/L Total Protein 6.7 (6.7-8.2) g/dl Albumin 3.6 (3.2-5.5) g/dl Globulin 3.1 Albumin/Globulin Ratio 1.16 Urine Color (YELLOW) Urine Appearance (CLEAR) Urine pH (5.0-9.0) Ur Specific [place] (1.005-1.030) Urine Protein (NEGATIVE) Urine Glucose (UA) (NEGATIVE) Urine Ketones (NEGATIVE) Urine Occult Blood (NEGATIVE) Urine Nitrite (NEGATIVE) Urine Bilirubin (NEGATIVE) Urine Urobilinogen (0.2-1.0) mg/dL Ur Leukocyte Esterase (NEGATIVE) 07/12/18 Range/Units 12:30 WBC (5.0-10.0) 10^3/uL RBC (4.2-5.4) 10^6/uL Hgb (12.0-16.0) g/dL Hct (37.0-47.0) % MCV (80-100) fL MCH (27.0-34.0) pg MCHC (33.0-35.0) g/dL Plt Count (150-450) 10^3/uL Neut % (Auto) (42.2-75.2) % Lymph % (Auto) (20.5-50.1) % [place] % (Auto) (2-8) % Eos % (Auto) (1.0-3.0) % Baso % (Auto) (0.0-1.0) % PT (9.0-12.0) SEC INR (0.9-1.2) Sodium (135-145) mmol/L Potassium (3.6-5.0) mmol/L Chloride (101-111) mmol/L Carbon Dioxide (21.0-31.0) mmol/L Anion Gap BUN (7-18) mg/dL Creatinine (0.6-1.3) mg/dL Est Cr Clr Drug Dosing mL/min Estimated GFR (MDRD) BUN/Creatinine Ratio Glucose (74-105) mg/dL Calcium (8.4-10.2) mg/dl Total Bilirubin (0.2-1.0) mg/dL AST (10-42) IU/L ALT (10-60) IU/L Alkaline Phosphatase (42-121) IU/L Total Protein (6.7-8.2) g/dl Albumin (3.2-5.5) g/dl Globulin Albumin/Globulin Ratio Urine Color Yellow (YELLOW) Urine Appearance Clear (CLEAR) Urine pH 6.0 (5.0-9.0) Ur Specific [place] 1.015 (1.005-1.030) Urine Protein Negative (NEGATIVE) Urine Glucose (UA) Negative (NEGATIVE) Urine Ketones Negative (NEGATIVE) Urine Occult Blood Negative (NEGATIVE) Urine Nitrite Negative (NEGATIVE) Urine Bilirubin Negative (NEGATIVE) Urine Urobilinogen 0.2 (0.2-1.0) mg/dL Ur Leukocyte Esterase Negative (NEGATIVE) Meds: Medications Discontinued Medications Generic Name Dose Route Start Last Admin Trade Name Freq PRN Reason Stop Dose Admin Iopamidol 75 ml 07/12/18 12:35 07/12/18 13:17 Isovue-300 (61%) IVPUSH 07/12/18 12:36 75 ml ONETIME ONE Administration - Radiology Interpretation Free Text/Narrative:: CT Abdomen/Pelvis with contrast: 1. Numerous hypodense nodules are present within both lobes of the liver with the largest measuring 2 cm within the right lobe. Findings are consistent with possible metastatic changes. 2. Numerous bilateral pulmonary nodules are present within the lung bases with the largest measuring up to 9 mm in the right lung base. Findings are consistent with possible metastatic changes. 3. Large gallstone is present without evidence of cholecystitis. 4. Cystic changes again noted within the body and tell of the pancreas. Thank you for allowing us to participate in the care of your patient. Dictated and Authenticated by: Jacky Elizondo DO 07/12/2018 2:25 PM Central Time ([place] & [place]) See rad report Departure - Departure Time of Disposition: 14:29 Disposition: Home, Self-Care 01 Condition: Fair Clinical Impression: RUQ pain Cholelithiasis Qualifiers: Cholelithiasis location: other site Biliary obstruction: without biliary obstruction Qualified Code(s): K80.80 - Other cholelithiasis without obstruction - Discharge Information *PRESCRIPTION DRUG MONITORING PROGRAM REVIEWED*: No *COPY OF PRESCRIPTION DRUG MONITORING REPORT IN PATIENT YEE: No Instructions: Cholelithiasis, [id number], Abdominal Pain, Adult, [id number] Forms: ED Department Discharge Additional Instructions: Continue regular medication regimen Follow up with your primary care facility May use Tylenol as directed for pain. - My Orders Last 24 Hours: My Active Orders 07/12/18 12:06 Implanted Port Access [RC] DAILY - Assessment/Plan Last 24 Hours: My Active Orders 07/12/18 12:06 Implanted Port Access [RC] DAILY I have read and agree with the documentation that has been completed regarding this visit. By signing this record, I attest that the documentation was completed in my physical presence and is an accurate record of the encounter.
== END 2018-07-12 14:44 | disposition home or self-care (01) ==
LOC: DL.ED 11:25
DX: K80.80 Other cholelithiasis without obstruction (principal); I10 Essential (primary) hypertension; E78.00 Pure hypercholesterolemia, unspecified; K21.9 Gastro-esophageal reflux disease without esophagitis; E03.9 Hypothyroidism, unspecified; F41.9 Anxiety disorder, unspecified; I48.91 Unspecified atrial fibrillation; Z79.899 Other long term (current) drug therapy; Z79.82 Long term (current) use of aspirin; Z91.018 Allergy to other foods; Z88.8 Allergy status to other drugs, medicaments and biological substances
CPT/HCPCS: 36415; 74177; 80053; 81003; 85025; 85610; 96374; 99284; J1642; Q9967

== ENCOUNTER 2019-02-01 19:35 | Emergency (ER) | payer MEDICARE, BC ==
[2019-02-01 19:45] VITALS: BP 123/66; PULSE 93
--- NOTE | 2019-02-01 20:04 | EDM.PDOC ---
"ED HPI GENERAL MEDICAL PROBLEM - General Stated Complaint: CANT PEE Time Seen by Provider: 02/01/19 19:45 Source of Information: Reports: Patient History Limitations: Reports: No Limitations - History of Present Illness INITIAL COMMENTS - FREE TEXT/NARRATIVE: ED with c/o not being able to pee, Not feeling urge. Lower legs swelling, increased weight 2-3# daily. Patient sates forgetful so unsure what usual weight is. Reports chills, Hx lung cancer with mets to liver. Some SOB but no increase from usual. Decreased appetite. - Related Data Allergies Allergy/AdvReac Type Severity Reaction Status Date / Time alendronate sodium Allergy Unknown UNKNOWN Verified 02/01/19 20:36 atorvastatin calcium Allergy Unknown MUSCLE Verified 02/01/19 20:36 [From Lipitor] ACHES/PAINS caffeine Allergy Unknown UNKNOWN Verified 02/01/19 20:36 esomeprazole magnesium Allergy Unknown UNKNOWN Verified 02/01/19 20:36 [From Nexium] lansoprazole [From Prevacid] Allergy Unknown Diarrhea Verified 02/01/19 20:36 pravastatin sodium Allergy Unknown MUSCLE Verified 02/01/19 20:36 [From Pravachol] CRAMPS/SPAMS carboplatin Allergy Hives Verified 02/01/19 20:36 pantoprazole [From Protonix] Allergy Other Verified 02/01/19 20:36 potassium chloride AdvReac Nausea Verified 02/01/19 20:36 Home Meds: Home Meds Aspirin [Adult Low Dose Aspirin EC] 81 mg PO DAILY 07/08/13 [History] Calcium Carbonate [Tums] 500 mg PO BEDTIME 07/08/13 [History] LORazepam 0.5 mg PO BEDTIME PRN 07/08/13 [History] Levothyroxine Sodium 100 mcg PO DAILY 07/08/13 [History] Lisinopril 10 mg PO BID 07/08/13 [History] Omeprazole 20 mg PO PCBREAKFAST 07/08/13 [History] Potassium Chloride 20 meq PO TID 07/08/13 [History] Senna 1 tab PO DAILY PRN 07/08/13 [History] Vit D3, Cholecalciferol,2000 Unit 2,000 units PO DAILY 07/08/13 [History] Warfarin Sodium [Jantoven] 4 mg PO ASDIRECTED 07/08/13 [History] Furosemide 20 mg PO BID 06/28/15 [History] Rosuvastatin Calcium [Crestor] 5 mg PO BEDTIME 06/28/15 [History] Acetaminophen [Tylenol Extra Strength] 1,000 mg PO Q6H PRN 04/21/16 [History] Lidocaine/Prilocaine [Lidocaine-Prilocaine Cream] 1 applic TOP DAILY PRN [History] Sotalol [Betapace] 80 mg PO BID 04/21/16 [History] Vit A/Vit C/Vit E/Zinc/Copper [Preservision] 1 tab PO DAILY 01/22/17 [History] Calcium Carbonate/Vitamin D3 [Calcium 600 + Vit D 200] 1 tab PO DAILY 04/02/17 [ History] Folic Acid 1 mg PO DAILY 04/02/17 [History] Multivit with Min #53/FA/K/Q10 [Dekas Plus Softgel] 1 tab PO DAILY 04/02/17 [ History] Milk Of Magnesia 0 ASDIRECTED 02/01/19 [History] Vit C/E/Zn/Coppr/Lutein/Zeaxan [Preservision Areds 2 Softgel] 1 each PO [History] Vitamin B6 02/01/19 [History] hydrALAZINE HCl [Hydralazine HCl] 50 mg PO DAILY 02/01/19 [History] Past Medical History HEENT History: Reports: Impaired Vision, Macular Degeneration, Other (See Below) Other HEENT History: ringing in the ears to have a MRI. RECEIVES EYE INJECTIONS FOR MAC DEGENERATION. Dry macular degeneration Cardiovascular History: Reports: Afib, Heart Murmur, High Cholesterol, Hypertension, Stents Respiratory History: Reports: Other (See Below) Other Respiratory History: Lung cancer Gastrointestinal History: Reports: Diverticulosis, GERD Genitourinary History: Reports: None [employer] History: Reports: , Spontaneous Musculoskeletal History: Reports: Arthritis, Back Pain, Chronic, Neck Pain, Chronic, Other (See Below) Other Musculoskeletal History: LYMPHEDEMA OF BILAT LE Neurological History: Reports: None Psychiatric History: Reports: Anxiety Endocrine/Metabolic History: Reports: Hypothyroidism Hematologic History: Reports: Anemia Immunologic History: Reports: None Oncologic (Cancer) History: Reports: Liver, Lung, Other (See Below) Other Oncologic History: pelvic area Dermatologic History: Reports: Other (See Below) Other Dermatologic History: lipidema - Infectious Disease History Infectious Disease History: Reports: Chicken Pox, Measles, Mumps, Shingles - Past Surgical History Head Surgeries/Procedures: Reports: None HEENT Surgical History: Reports: Adenoidectomy, Tonsillectomy Cardiovascular Surgical History: Reports: Carotid Endarterectomy, Other (See Below) Other Cardiovascular Surgeries/Procedures: Edema feet Respiratory Surgical History: Reports: Lung Resection Other Respiratory Surgeries/Procedures: R) lung resection GI Surgical History: Reports: Appendectomy, Colonoscopy, EGD Female Surgical History: Reports: Section, Hysterectomy Endocrine Surgical History: Reports: None Neurological Surgical History: Reports: None Musculoskeletal Surgical History: Reports: Other (See Below) Other Musculoskeletal Surgeries/Procedures:: Knee surgery Oncologic Surgical History: Reports: Other (See Below) Other Oncologic Surgeries/Procedures: SKIN BIOPSY Dermatological Surgical History: Reports: Skin Biopsy Social & Family History - Family History Family Medical History: Unobtainable Cardiac: Reports: Afib, Hypertension Oncologic: Reports: Bone, Lung - Caffeine Use Caffeine Use: Reports: None ED ROS GENERAL - Review of Systems Review Of Systems: Comprehensive ROS is negative, except as noted in HPI. ED EXAM, GENERAL - Physical Exam Exam: See Below Exam Limited By: No Limitations General Appearance: Alert, Mild Distress Eye Exam: Bilateral Eye: EOMI, PERRL Ears: Normal External Exam, Hearing Grossly Normal Nose: Normal Inspection Head: Atraumatic, Normocephalic Neck: Normal Inspection Respiratory/Chest: Decreased Breath Sounds, Crackles (bilateral) Cardiovascular: Regular Rate, Rhythm GI/Abdominal: Normal Bowel Sounds, Soft. No: Guarding, Tender Back Exam: Full Range of Motion Extremities: Pedal Edema (3+ above knee ). No: Redness Neurological: Alert, Oriented Psychiatric: Normal Affect Skin Exam: Warm, Dry, Intact, Normal Color Course - Vital Signs Last Recorded V/S: Last Vital Signs Temp 97.2 F 02/01/19 19:44 Pulse 93 02/01/19 19:44 Resp 16 02/01/19 19:44 BP 123/66 02/01/19 19:44 Pulse Ox 100 02/01/19 19:44 - Orders/Labs/Meds Labs: Laboratory Tests 02/01/19 02/01/19 02/01/19 Range/Units 19:58 19:58 19:58 WBC 6.3 (5.0-10.0) 10^3/uL RBC 4.28 (4.2-5.4) 10^6/uL Hgb 13.0 D (12.0-16.0) g/dL Hct 36.7 L (37.0-47.0) % MCV 85.7 (80-100) fL MCH 30.4 (27.0-34.0) pg MCHC 35.4 H (33.0-35.0) g/dL Plt Count 165 (150-450) 10^3/uL Neut % (Auto) 67.6 (42.2-75.2) % Lymph % (Auto) 21.5 (20.5-50.1) % Jerome % (Auto) 8.8 H (2-8) % Eos % (Auto) 1.7 (1.0-3.0) % Baso % (Auto) 0.4 (0.0-1.0) % Add Manual Diff Yes Neutrophils % (Manual) 67 (42-75) % Band Neutrophils % 2 % Lymphocytes % (Manual) 20 (20-50) % Monocytes % (Manual) 10 H (2-8) % Eosinophils % (Manual) 1 (1-3) % PT 38.3 H D (9.0-12.0) SEC INR 4.0 H (0.9-1.2) Sodium 131 L (135-145) mmol/L Potassium 3.2 L (3.6-5.0) mmol/L Chloride 100 L (101-111) mmol/L Carbon Dioxide 21.0 (21.0-31.0) mmol/L Anion Gap 13.2 BUN 19 H (7-18) mg/dL Creatinine 1.0 (0.6-1.3) mg/dL Est Cr Clr Drug Dosing 35.52 mL/min Estimated GFR (MDRD) 53 BUN/Creatinine Ratio 19.00 Glucose 109 H (74-105) mg/dL Lactic Acid (0.5-2.2) mmol/L Calcium 7.4 L D (8.4-10.2) mg/dl Total Bilirubin 1.2 H (0.2-1.0) mg/dL AST 59 H (10-42) IU/L ALT 56 (10-60) IU/L Alkaline Phosphatase 71 (42-121) IU/L Ammonia (11-35) umol/L Troponin I < 0.02 (0.00-0.02) ng/ml B-Natriuretic Peptide 56 (0-100) pg/ml Total Protein 4.2 L (6.7-8.2) g/dl Albumin 2.2 L (3.2-5.5) g/dl Globulin 2.0 Albumin/Globulin Ratio 1.10 Amylase 91 (28-100) U/L Lipase 73 H (22-51) U/L TSH, Ultra Sensitive (0.45-5.33) uIu/mL Urine Color (YELLOW) Urine Appearance (CLEAR) Urine pH (5.0-9.0) Ur Specific [place] (1.005-1.030) Urine Protein (NEGATIVE) Urine Glucose (UA) (NEGATIVE) Urine Ketones (NEGATIVE) Urine Occult Blood (NEGATIVE) Urine Nitrite (NEGATIVE) Urine Bilirubin (NEGATIVE) Urine Urobilinogen (0.2-1.0) mg/dL Ur Leukocyte Esterase (NEGATIVE) Urine RBC /HPF Urine WBC (0-5/HPF) /HPF Ur Epithelial Cells (NOT SEEN) /HPF Amorphous Sediment (NOT SEEN) /HPF Urine Bacteria (0-FEW/HPF) /HPF Hyaline Casts (NOT SEEN) /LPF Fine Granular Casts (NOT SEEN) /LPF Urine Mucus (NOT SEEN) /LPF 02/01/19 02/01/19 02/01/19 Range/Units 19:58 19:58 19:58 WBC (5.0-10.0) 10^3/uL RBC (4.2-5.4) 10^6/uL Hgb (12.0-16.0) g/dL Hct (37.0-47.0) % MCV (80-100) fL MCH (27.0-34.0) pg MCHC (33.0-35.0) g/dL Plt Count (150-450) 10^3/uL Neut % (Auto) (42.2-75.2) % Lymph % (Auto) (20.5-50.1) % Jerome % (Auto) (2-8) % Eos % (Auto) (1.0-3.0) % Baso % (Auto) (0.0-1.0) % Add Manual Diff Neutrophils % (Manual) (42-75) % Band Neutrophils % % Lymphocytes % (Manual) (20-50) % Monocytes % (Manual) (2-8) % Eosinophils % (Manual) (1-3) % PT (9.0-12.0) SEC INR (0.9-1.2) Sodium (135-145) mmol/L Potassium (3.6-5.0) mmol/L Chloride (101-111) mmol/L Carbon Dioxide (21.0-31.0) mmol/L Anion Gap BUN (7-18) mg/dL Creatinine (0.6-1.3) mg/dL Est Cr Clr Drug Dosing mL/min Estimated GFR (MDRD) BUN/Creatinine Ratio Glucose (74-105) mg/dL Lactic Acid 0.8 (0.5-2.2) mmol/L Calcium (8.4-10.2) mg/dl Total Bilirubin (0.2-1.0) mg/dL AST (10-42) IU/L ALT (10-60) IU/L Alkaline Phosphatase (42-121) IU/L Ammonia 39 H (11-35) umol/L Troponin I (0.00-0.02) ng/ml B-Natriuretic Peptide (0-100) pg/ml Total Protein (6.7-8.2) g/dl Albumin (3.2-5.5) g/dl Globulin Albumin/Globulin Ratio Amylase (28-100) U/L Lipase (22-51) U/L TSH, Ultra Sensitive 17.62 H (0.45-5.33) uIu/mL Urine Color (YELLOW) Urine Appearance (CLEAR) Urine pH (5.0-9.0) Ur Specific [place] (1.005-1.030) Urine Protein (NEGATIVE) Urine Glucose (UA) (NEGATIVE) Urine Ketones (NEGATIVE) Urine Occult Blood (NEGATIVE) Urine Nitrite (NEGATIVE) Urine Bilirubin (NEGATIVE) Urine Urobilinogen (0.2-1.0) mg/dL Ur Leukocyte Esterase (NEGATIVE) Urine RBC /HPF Urine WBC (0-5/HPF) /HPF Ur Epithelial Cells (NOT SEEN) /HPF Amorphous Sediment (NOT SEEN) /HPF Urine Bacteria (0-FEW/HPF) /HPF Hyaline Casts (NOT SEEN) /LPF Fine Granular Casts (NOT SEEN) /LPF Urine Mucus (NOT SEEN) /LPF 11/10/19 Range/Units 20:25 WBC (5.0-10.0) 10^3/uL RBC (4.2-5.4) 10^6/uL Hgb (12.0-16.0) g/dL Hct (37.0-47.0) % MCV (80-100) fL MCH (27.0-34.0) pg MCHC (33.0-35.0) g/dL Plt Count (150-450) 10^3/uL Neut % (Auto) (42.2-75.2) % Lymph % (Auto) (20.5-50.1) % Jerome % (Auto) (2-8) % Eos % (Auto) (1.0-3.0) % Baso % (Auto) (0.0-1.0) % Add Manual Diff Neutrophils % (Manual) (42-75) % Band Neutrophils % % Lymphocytes % (Manual) (20-50) % Monocytes % (Manual) (2-8) % Eosinophils % (Manual) (1-3) % PT (9.0-12.0) SEC INR (0.9-1.2) Sodium (135-145) mmol/L Potassium (3.6-5.0) mmol/L Chloride (101-111) mmol/L Carbon Dioxide (21.0-31.0) mmol/L Anion Gap BUN (7-18) mg/dL Creatinine (0.6-1.3) mg/dL Est Cr Clr Drug Dosing mL/min Estimated GFR (MDRD) BUN/Creatinine Ratio Glucose (74-105) mg/dL Lactic Acid (0.5-2.2) mmol/L Calcium (8.4-10.2) mg/dl Total Bilirubin (0.2-1.0) mg/dL AST (10-42) IU/L ALT (10-60) IU/L Alkaline Phosphatase (42-121) IU/L Ammonia (11-35) umol/L Troponin I (0.00-0.02) ng/ml B-Natriuretic Peptide (0-100) pg/ml Total Protein (6.7-8.2) g/dl Albumin (3.2-5.5) g/dl Globulin Albumin/Globulin Ratio Amylase (28-100) U/L Lipase (22-51) U/L TSH, Ultra Sensitive (0.45-5.33) uIu/mL Urine Color Dark yellow (YELLOW) Urine Appearance Slightly cloudy (CLEAR) Urine pH 6.5 (5.0-9.0) Ur Specific [place] 1.020 (1.005-1.030) Urine Protein 30 H (NEGATIVE) Urine Glucose (UA) Negative (NEGATIVE) Urine Ketones 15 H (NEGATIVE) Urine Occult Blood Negative (NEGATIVE) Urine Nitrite Negative (NEGATIVE) Urine Bilirubin Small H (NEGATIVE) Urine Urobilinogen 0.2 (0.2-1.0) mg/dL Ur Leukocyte Esterase Negative (NEGATIVE) Urine RBC 0-5 /HPF Urine WBC 0-5 (0-5/HPF) /HPF Ur Epithelial Cells Moderate H (NOT SEEN) /HPF Amorphous Sediment Moderate H (NOT SEEN) /HPF Urine Bacteria Rare (0-FEW/HPF) /HPF Hyaline Casts Moderate H (NOT SEEN) /LPF Fine Granular Casts Few H (NOT SEEN) /LPF Urine Mucus Many H (NOT SEEN) /LPF Meds: Medications Discontinued Medications Generic Name Dose Route Start Last Admin Trade Name Freq PRN Reason Stop Dose Admin Furosemide 40 mg 02/01/19 20:24 02/01/19 20:31 Lasix IVPUSH 02/01/19 20:25 40 mg NOW ONE Administration Potassium Chloride 20 meq/ 100 mls @ 50 mls/hr 02/01/19 20:50 02/01/19 21:43 Premix IV 02/01/19 22:49 50 mls/hr ONETIME ONE Administration - Radiology Interpretation Free Text/Narrative:: ) [facility] Final Radiology Report Call: [phone] assistance Online chat: [email or web address] Name: VIJAY LORENZO Age: 84Years F Date: 02/01/2019 SSN: -- : [id number] Study: CT ABDOMEN/PELVIS WO Requesting Physician: EVELYNE ODEN Images: [id number] Addl Studies: Provided Clinical History: Contrast: Without Contrast Medium: Contrast Amount: Contrast Method: Page 1 of 2 PROCEDURE INFORMATION: Exam: CT Abdomen And Pelvis Without Contrast Exam date and time: 02/01/2019 8:59 PM Clinical history: 84 years old, female; Other: Distension lung and liver ca-- swelling TECHNIQUE: Imaging protocol: Computed tomography of the abdomen and pelvis without contrast. Radiation optimization: All CT scans at this facility use at least one of these dose optimization techniques: automated exposure control; mA and/or kV adjustment per patient size (includes targeted exams where dose is matched to clinical indication); or iterative reconstruction. COMPARISON: CT Abdomen Pelvis w Cont 07/12/2018 1:14 PM FINDINGS: Lungs: Pulmonary nodules measuring up to 1.5 cm. Liver: Granulomas in the liver. previously seen hepatic lesions are not well seen without IV contrast. Gallbladder and bile ducts: Gallstones without evidence of acute cholecystitis. Pancreas: Pancreatic mass measuring 4.5 cm in the body that appears complex. Consider dedicated MRI to exclude underlying malignancy. 2 cm pancreatic cyst in the body. Spleen: Normal. No splenomegaly. Adrenals: Normal. No mass. Kidneys and ureters: Normal. No hydronephrosis. Stomach and bowel: Distal colonic diverticulosis without diverticulitis. Appendix: Unable to identify the appendix. Intraperitoneal space: pelvic ascites. Vasculature: Aortic and coronary atherosclerosis. Lymph nodes: Unremarkable. No enlarged lymph nodes. Bladder: Bladder collapsed around a jon catheter limiting evaluation. VIJAY LORENZO | Final Radiology Report CONFIDENTIALITY STATEMENT This report is intended only for use by the referring physician, and only in accordance with law. If you received this in error, call [phone]. Page 2 of 2 Reproductive: Unremarkable as visualized. Bones/joints: Grade 1 anterolisthesis of L4 on L5. Soft tissues: Unremarkable. IMPRESSION: 1. Pulmonary nodules measuring up to 1.5 cm. These are enlarged compared to the prior exam.For patients at low risk (minimal or absent history of smoking and of other known risk factors), recommend CT Chest at 3-6 months, then consider CT Chest at 18-24 months. For patients at high risk (history of smoking or of other known risk factors), recommend CT Chest at 3-6 months, then CT Chest at 18-24 months. Angel Gordon, Fleischner Society, 2017. 2. Gallstones without evidence of acute cholecystitis. Stable. 3. Previously seen hepatic lesions are not well seen without IV contrast. 4. Pancreatic mass measuring 4.5 cm in the body that appears complex. This is enlarged. Consider dedicated MRI to exclude underlying malignancy. 5. Pelvic ascites. New. 6. 2 cm pancreatic cyst in the body. Stable. COMMENT: Consistent with the [employer]'s Incidental Findings Committee Report (J Am Ana Radiol 2010): Unless the patient's specific circumstances suggest otherwise , any liver lesion 0.5 cm or less, any cystic kidney lesion less than 1.0 cm, and/or any adrenal lesion 1.0 cm or less not otherwise characterized in this report as possessing suspicious or indeterminate imaging features is/are highly likely to be benign and do not require follow-up imaging or biopsy. Thank you for allowing us to participate in the care of your patient. Dictated and Authenticated by: Loi Melchor MD 02/01/2019 9:24 PM Central Time ([place] & [place]) - Re-Assessments/Exams Free Text/Narrative Re-Assessment/Exam: TC Dr Mazariegos, Patient appropriate for admission for diurisis but admission local would delay follow up with Oncology, refer to GF. 02/01/19 21:[address] Mcgarry accepting of patient Tx via [facility] to [facility] Departure - Departure Time of Disposition: 22:20 Disposition: DC/Tfer to Acute Hospital 02 Condition: Undetermined Clinical Impression: Elevated INR, Hypokalemia, History of atrial fibrillation, Hypocalcemia, Hypoalbuminemia Edema Qualifiers: Edema type: unspecified Qualified Code(s): R60.9 - Edema, unspecified Hypothyroid Qualifiers: Hypothyroidism type: unspecified Qualified Code(s): E03.9 - Hypothyroidism, unspecified Lung cancer, primary, with metastasis from lung to other site Qualifiers: Laterality: unspecified laterality Qualified Code(s): C34.90 - Malignant neoplasm of unspecified part of unspecified bronchus or lung Ascites Qualifiers: Ascites type: malignant Qualified Code(s): R18.0 - Malignant ascites - Discharge Information Referrals: PCP,Unobtain [Primary Care Provider] - Forms: ED Department Discharge"
[2019-02-01] MEDS ORDERED: Furosemide 40 MG/4 ML VIAL IVPUSH ONE (20:24)
[2019-02-01 20:40] LABS: ANION GAP 13.2; CHLORIDE,CL 100 mmol/L (101-111); SODIUM,NA 131 mmol/L (135-145)
[2019-02-01] MEDS ORDERED: Potassium Chloride 20 MEQ in Premix Bag 1 BAG IV ONE (20:50)
== END 2019-02-01 22:23 ==
LOC: DL.ED 19:35
DX: E87.6 Hypokalemia (principal); C34.90 Malignant neoplasm of unspecified part of unspecified bronchus or lung; E03.9 Hypothyroidism, unspecified; R18.0 Malignant ascites; I48.91 Unspecified atrial fibrillation; E83.51 Hypocalcemia; E88.09 Other disorders of plasma-protein metabolism, not elsewhere classified; R79.1 Abnormal coagulation profile; I10 Essential (primary) hypertension; K21.9 Gastro-esophageal reflux disease without esophagitis; M19.90 Unspecified osteoarthritis, unspecified site; F41.9 Anxiety disorder, unspecified; Z88.8 Allergy status to other drugs, medicaments and biological substances; Z79.82 Long term (current) use of aspirin; Z79.899 Other long term (current) drug therapy
CPT/HCPCS: 36415; 51702; 71045; 74176; 80053; 81001; 82140; 82150; 83605; 83690; 83880; 84443; 84484; 85025; 85610; 87040; 93005; 96365; 96375; 99285; J1940; J3480; 87077; 87186

== ENCOUNTER 2019-05-10 15:42 | Emergency (ER) | payer MEDICARE, BC | END 2019-05-10 16:12 | disposition left against medical advice (07) | LOC: DL.ED 15:42 | DX: Z53.21 Procedure and treatment not carried out due to patient leaving prior to being seen by health care provider (principal) ==

== ENCOUNTER 2019-05-13 09:32 | Day surgery (SDC) | payer MEDICARE, BC ==
[~2019-05-13 09:32] MED LIST changes: -Midazolam 1 MG/ML 2 ML SDV ONE; +Tropicamide 1% Ophth Soln 15 ML Bottle EYERT ONE; -fentaNYL 100 MCG/2 ML SDV ONE
[2019-05-13] MEDS ORDERED: Dexamethasone 4 MG/ML SDV IV ONE (09:33)
[2019-05-13] MEDS ORDERED: Midazolam 1 MG/ML 2 ML SDV IV ONE (09:33)
[2019-05-13] MEDS ORDERED: Proparacaine 0.5% Ophth Soln 15 ML Bottle EYERT ONE (09:45)
[2019-05-13] MEDS ORDERED: Moxifloxacin 0.5% Ophth Soln 3 ML Bottle EYERT ONE (09:45)
[2019-05-13] MEDS ORDERED: Cataract Ophth Solution EYERT ONE (09:45)
[2019-05-13] MEDS ORDERED: Sodium Chloride 0.9% 10 ML Syringe FLUSH PRN (09:45)
[2019-05-13] MEDS ORDERED: Phenylephrine 10% Ophth Soln 5 ML Bot EYERT PRN (09:45)
[2019-05-13] MEDS ORDERED: Phenylephrine 10% Ophth Soln 5 ML Bot EYERT ONE ×2 (09:45→10:35)
[2019-05-13] MEDS ORDERED: Acetaminophen 325 MG Tab PO PRN (09:45)
[2019-05-13] MEDS ORDERED: Ondansetron 4 MG/2 ML SDV IVPUSH PRN (09:45)
[2019-05-13] MEDS ORDERED: Timolol Maleate 0.5% Ophth Soln 5 ML Bottle EYERT ONE (09:45)
[2019-05-13] MEDS ORDERED: Povidone-Iodine 5% Sterile Ophth Soln 30 ML Bottle EYERT ONE ×2 (09:45→10:34)
[2019-05-13] MEDS ORDERED: Tetracaine HCl/PF 0.5% 4 ML Bottle EYERT ONE (10:34)
[2019-05-13] MEDS ORDERED: Diclofenac Sodium 0.1% Ophth Soln 5 ML Bottle EYERT ONE (10:35)
[2019-05-13] MEDS ORDERED: Lidocaine 1% 30 ML SDV ONE (10:35)
[2019-05-13] MEDS ORDERED: Apraclonidine 0.5% Ophth Soln 5 ML Bot EYERT ONE (10:35)
[2019-05-13] MEDS ORDERED: Vancomycin 500 MG SDV EYERT ONE (10:36)
[2019-05-13] MEDS ORDERED: Balanced Salt Solution Ophth Irrig 500 ML Bottle IOCULAR ONE (10:36)
[2019-05-13] MEDS ORDERED: Dexamethasone 4 MG/ML SDV IOCULAR ONE (10:36)
[2019-05-13] MEDS ORDERED: Chondroitin Sulfate/Hyaluronate Sodium Ophth Inj 0.75 ML Syringe EYERT ONE (10:37)
[2019-05-13] MEDS ORDERED: Trypan Blue 0.06% Ophth Soln 0.5 ML Syringe EYERT ONE (10:37)
[2019-05-13 12:11] VITALS: BP 165/65; PULSE 67
--- NOTE | 2019-05-14 08:24 | OR ---
DATE: 05/13/2019 PREOPERATIVE DIAGNOSIS: Advanced cataract, right eye. POSTOPERATIVE DIAGNOSIS: Advanced cataract, right eye. PROCEDURE PERFORMED: Complex cataract with mature cataract/Trypan blue. INDICATION: The patient was seen in the clinic. Examination revealed advanced cataract. I explained options, offered cataract surgery, and I explained risks including, but not limited to, infection, retinal detachment, loss of vision, need for additional surgery, risks associated with anesthesia including loss of life. We discussed implant options. She has a history of age-related macular degeneration and I recommended a monofocal implant. She understands that she may require glasses following surgery for best vision. OPERATIVE DESCRIPTION: After informed consent was obtained and risks, benefits, and alternatives were explained, the patient was brought to the OR and prepped and draped in a sterile fashion. Attention was placed on the right eye. Sterile lid speculum was placed into the right eye to allow operative exposure. Full-thickness paracentesis was then made temporal. Preservative-free lidocaine followed by viscoelastic was injected into the anterior chamber. A 2.75 mm corneal incision was then made temporally. Cataract was mature and there was a limited red reflex. I injected Trypan blue, stained the anterior capsule, left a Trypan blue in the anterior chamber for approximately 30 seconds. I injected additional Viscoat to promote egress of the Trypan blue. A bent needle cystotome was then used to create a small immanuel in the anterior capsule. A 5 mm curvilinear capsulorrhexis was created. Nucleus was hydrodissected, hydrodelineated, decompressed centrally. Nucleus was then removed using the phacoemulsification handpiece and a quick chop technique. Following nucleus removal, the remaining cortical material was removed using the I and A handpiece. Additional Viscoat was injected into the capsular bag. The intra- ocular lens was inserted. The remaining Viscoat was then aspirated from both the anterior and posterior chambers. Wound and paracentesis sites were hydrated. Intra-ocular pressure was assessed and found to be in the high normal range. Postoperative medications were administered. Sterile patch and shield were placed over the eye. The patient was awakened from light sedation and transported to the postoperative recovery area having tolerated the procedure well. [facility] /[id number]
== END 2019-05-13 12:00 | disposition home or self-care (01) ==
LOC: DL.SDS 09:32
PROVIDERS: ATTEND Ophthalmology
DX: H26.9 Unspecified cataract (principal); K21.9 Gastro-esophageal reflux disease without esophagitis; E78.5 Hyperlipidemia, unspecified; E03.9 Hypothyroidism, unspecified; I12.9 Hypertensive chronic kidney disease with stage 1 through stage 4 chronic kidney disease, or unspecified chronic kidney disease; N18.3 Chronic kidney disease, stage 3 (moderate); M19.90 Unspecified osteoarthritis, unspecified site; Z87.891 Personal history of nicotine dependence; Z86.69 Personal history of other diseases of the nervous system and sense organs; Z79.899 Other long term (current) drug therapy; Z79.01 Long term (current) use of anticoagulants; Z79.82 Long term (current) use of aspirin; Z88.8 Allergy status to other drugs, medicaments and biological substances; Z91.018 Allergy to other foods
CPT/HCPCS: 00142; J1100; J2001; J2250; J3370; V2632

== ENCOUNTER 2019-05-20 09:18 | Day surgery (SDC) | payer MEDICARE, BC ==
[~2019-05-20 09:18] MED LIST changes: +Tropicamide 1% Ophth Soln 15 ML Bottle EYELF ONE; -Tropicamide 1% Ophth Soln 15 ML Bottle EYERT ONE
[2019-05-20] MEDS ORDERED: Sodium Chloride 0.9% 10 ML Syringe IV ONE (09:19)
[2019-05-20] MEDS ORDERED: Midazolam 1 MG/ML 2 ML SDV IV ONE (09:19)
[2019-05-20] MEDS ORDERED: Dexamethasone 4 MG/ML SDV IV ONE (09:19)
[2019-05-20] MEDS ORDERED: Moxifloxacin 0.5% Ophth Soln 3 ML Bottle EYELF ONE (09:45)
[2019-05-20] MEDS ORDERED: Phenylephrine 10% Ophth Soln 5 ML Bot EYELF PRN (09:45)
[2019-05-20] MEDS ORDERED: Acetaminophen 325 MG Tab PO PRN (09:45)
[2019-05-20] MEDS ORDERED: Phenylephrine 10% Ophth Soln 5 ML Bot EYELF ONE (09:45)
[2019-05-20] MEDS ORDERED: Povidone-Iodine 5% Sterile Ophth Soln 30 ML Bottle EYELF ONE ×2 (09:45→10:36)
[2019-05-20] MEDS ORDERED: Timolol Maleate 0.5% Ophth Soln 5 ML Bottle EYELF ONE (09:45)
[2019-05-20] MEDS ORDERED: Ondansetron 4 MG/2 ML SDV IVPUSH PRN (09:45)
[2019-05-20] MEDS ORDERED: Proparacaine 0.5% Ophth Soln 15 ML Bottle EYELF ONE (09:45)
[2019-05-20] MEDS ORDERED: Cataract Ophth Solution EYELF ONE (09:45)
[2019-05-20] MEDS: Sodium Chloride 0.9% 10 ML Syringe FLUSH PRN ×2 (10:00→12:04)
[2019-05-20 10:21] VITALS: BP 172/67; PULSE 66
[2019-05-20] MEDS ORDERED: Lidocaine 1% 30 ML SDV ONE (10:35)
[2019-05-20] MEDS ORDERED: Tetracaine HCl/PF 0.5% 4 ML Bottle EYELF ONE (10:35)
[2019-05-20] MEDS ORDERED: Apraclonidine 0.5% Ophth Soln 5 ML Bot EYELF ONE (10:36)
[2019-05-20] MEDS ORDERED: Diclofenac Sodium 0.1% Ophth Soln 5 ML Bottle EYELF ONE (10:36)
[2019-05-20] MEDS ORDERED: Balanced Salt Solution Ophth Irrig 500 ML Bottle IOCULAR ONE (10:36)
[2019-05-20] MEDS ORDERED: Dexamethasone/Neomycin/Polymyxin B Ophth Oint 3.5 GM Tube EYELF ONE (10:36)
[2019-05-20] MEDS ORDERED: Vancomycin 500 MG SDV EYELF ONE (10:37)
[2019-05-20] MEDS ORDERED: Chondroitin Sulfate/Hyaluronate Sodium Ophth Inj 0.75 ML Syringe EYELF ONE (10:37)
--- NOTE | 2019-05-21 08:50 | OR ---
DATE: 05/20/2019 PREOPERATIVE DIAGNOSIS: Visually significant mixed cataract, left eye. POSTOPERATIVE DIAGNOSIS: Visually significant mixed cataract, left eye. PROCEDURE: Extracapsular cataract extraction with intraocular lens implant, left eye. ANESTHESIA: Topical/local MAC. COMPLICATIONS: None. INDICATION: Ms. Howard was seen in the clinic with complaints of blurred vision. Examination revealed visually significant mixed cataract. She is symptomatic and requested cataract surgery. I explained the options, offered cataract surgery, and I explained risks, including, but not limited to, infection, retinal detachment, loss of vision, need for additional surgery, amongst others. We discussed implant options. She has requested a monofocal implant. She is comfortable wearing spectacle correction following the surgery if necessary. OPERATIVE DESCRIPTION: After informed consent was obtained and the risks, benefits, and alternatives were explained, the patient was brought to the operative suite and topical anesthesia was administered. The patient was then prepped and draped in the sterile fashion and attention was placed on the left eye. A sterile lid speculum was placed into the left eye to allow operative exposure. A full-thickness paracentesis was made in the temporal portion of the operative eye. Preservative-free lidocaine 0.1 mL was injected into the anterior chamber followed by viscoelastic. A full-thickness corneal incision was then made into the anterior chamber. A bent needle cystotome was used to create a small immanuel in the anterior capsule. The capsulorrhexis forceps was then used to create a 360-degree curvilinear capsulorrhexis. The nucleus was then removed using a phacoemulsification handpiece and the remaining cortical material was then removed with irrigation and aspiration handpiece. Following removal of the cortical material, the capsular bag was then inspected and noted to be free of any holes or tears. Viscoelastic was then injected into the capsular bag and the intraocular lens was inserted into the capsular bag. The viscoelastic material was then removed from both the anterior and posterior chambers and from behind the IOL. The lens and capsular bag were then reinspected. The IOL was well centered and the capsular bag intact. The wound and paracentesis sites were inspected and hydrated with balanced saline solution. Both were found to be self- sealing. The intraocular pressure was assessed digitally and found to be within normal range. A good red reflex was noted at the completion of the procedure. No complications occurred during the operation. At the completion of the procedure, Maxitrol, Voltaren, and Iopidine drops were placed into the operative eye. A sterile eye shield was placed over the operative eye and the patient was transported to the postoperative recovery area having tolerated the procedure well. Postoperative instructions were given along with a postoperative appointment. The patient was advised to call with any questions or concerns. [facility] /[id number]
== END 2019-05-20 11:45 | disposition home or self-care (01) ==
LOC: DL.SDS 09:18
PROVIDERS: ATTEND Ophthalmology
DX: H25.812 Combined forms of age-related cataract, left eye (principal); E66.9 Obesity, unspecified; E03.9 Hypothyroidism, unspecified; E78.5 Hyperlipidemia, unspecified; I12.9 Hypertensive chronic kidney disease with stage 1 through stage 4 chronic kidney disease, or unspecified chronic kidney disease; N18.3 Chronic kidney disease, stage 3 (moderate); M19.90 Unspecified osteoarthritis, unspecified site; I48.0 Paroxysmal atrial fibrillation; L82.1 Other seborrheic keratosis; D63.1 Anemia in chronic kidney disease; R73.03 Prediabetes; E87.6 Hypokalemia; E61.1 Iron deficiency; K21.9 Gastro-esophageal reflux disease without esophagitis; Z79.82 Long term (current) use of aspirin; Z87.891 Personal history of nicotine dependence; Z79.01 Long term (current) use of anticoagulants; Z79.899 Other long term (current) drug therapy; Z79.890 Hormone replacement therapy; Z88.8 Allergy status to other drugs, medicaments and biological substances; Z91.018 Allergy to other foods; Z68.26 Body mass index [BMI] 26.0-26.9, adult
CPT/HCPCS: 00142; 66984; A9270; J1100; J1642; J2001; J2250; J3370; V2632

== ENCOUNTER 2019-06-01 14:51 | Emergency (ER) | payer MEDICARE, BC ==
[2019-06-01 16:28] VITALS: PULSE 73
--- NOTE | 2019-06-01 16:46 | EDM.PDOC ---
ED HPI GENERAL MEDICAL PROBLEM - General Chief Complaint: Cardiovascular Problem Stated Complaint: HIGH BLOOD PRESSURE AND HEART Time Seen by Provider: 06/01/19 16:35 Source of Information: Reports: Patient History Limitations: Reports: No Limitations - History of Present Illness INITIAL COMMENTS - FREE TEXT/NARRATIVE: Patient presents to the ED by private vehicle with concerns of elevated blood pressure and palpitations. The patient states that she takes her blood pressure at home, she noticed blood pressure as high as 190s systolic at 11 am. She did call into the clinic and was advised to present to the ED. She also reports shortness of breath, onset yesterday. The patient reports that she recently was admitted at [facility] and she was started on furosemide, assumably due to kidney function. The patient reports a significant past medical history of lung cancer , atrial fibrillation on chronic anticoagulation, hypertension, GERD. Onset Date: 05/31/19 Duration: Constant Improves with: Reports: None Worsens with: Reports: None - Related Data Allergies Allergy/AdvReac Type Severity Reaction Status Date / Time alendronate sodium Allergy Unknown UNKNOWN Verified 06/01/19 16:28 atorvastatin calcium Allergy Unknown MUSCLE Verified 06/01/19 16:28 [From Lipitor] ACHES/PAINS caffeine Allergy Unknown UNKNOWN Verified 06/01/19 16:28 esomeprazole magnesium Allergy Unknown UNKNOWN Verified 06/01/19 16:28 [From Nexium] lansoprazole [From Prevacid] Allergy Unknown Diarrhea Verified 06/01/19 16:28 pravastatin sodium Allergy Unknown MUSCLE Verified 06/01/19 16:28 [From Pravachol] CRAMPS/SPAMS carboplatin Allergy Hives Verified 06/01/19 16:28 pantoprazole [From Protonix] Allergy Other Verified 06/01/19 16:28 potassium chloride AdvReac Nausea Verified 06/01/19 16:28 Home Meds: Home Meds Aspirin [Adult Low Dose Aspirin EC] 81 mg PO DAILY 07/08/13 [History] Calcium Carbonate [Tums] 500 mg PO BEDTIME PRN 07/08/13 [History] LORazepam 0.5 mg PO BEDTIME PRN 07/08/13 [History] Levothyroxine Sodium 100 mcg PO ASDIRECTED 07/08/13 [History] Omeprazole 20 mg PO PCBREAKFAST 07/08/13 [History] Potassium Chloride 20 meq PO TID 07/08/13 [History] Warfarin Sodium [Jantoven] 4 mg PO ASDIRECTED 07/08/13 [History] Furosemide 20 mg PO BID 06/28/15 [History] Rosuvastatin Calcium [Crestor] 5 mg PO BEDTIME 06/28/15 [History] Acetaminophen [Tylenol Extra Strength] 1,000 mg PO Q6H PRN 04/21/16 [History] Lidocaine/Prilocaine [Lidocaine-Prilocaine Cream] 1 applic TOP DAILY PRN [History] Sotalol [Betapace] 80 mg PO BID 04/21/16 [History] Vit A/Vit C/Vit E/Zinc/Copper [Preservision] 1 tab PO DAILY 01/22/17 [History] Calcium Carbonate/Vitamin D3 [Calcium 600 + Vit D 200] 1 tab PO DAILY 04/02/17 [ History] Folic Acid 1 mg PO DAILY 04/02/17 [History] Multivit with Min #53/FA/K/Q10 [Dekas Plus Softgel] 1 tab PO DAILY 04/02/17 [ History] Ondansetron [Zofran] 8 mg PO Q8H PRN 03/24/19 [History] Sennosides [Senokot] 8.6 mg PO DAILY 03/24/19 [History] Magnesium Oxide 250 mg PO ASDIRECTED 05/19/19 [History] Phosphorus #1 [Virt-Phos 250 Neutral Tablet] 1 tab PO ASDIRECTED 05/19/19 [ History] Pyridoxine HCl [Vitamin B-6] 250 mg PO DAILY 05/19/19 [History] Past Medical History HEENT History: Reports: Impaired Vision, Macular Degeneration, Other (See Below) Other HEENT History: ringing in the ears to have a MRI. RECEIVES EYE INJECTIONS FOR MAC DEGENERATION. Dry macular degeneration Cardiovascular History: Reports: Afib, Heart Murmur, High Cholesterol, Hypertension, Stents Other Cardiovascular History: carotid stent Respiratory History: Reports: Other (See Below) Other Respiratory History: RIGHT UPPER LOBE Lung cancer Gastrointestinal History: Reports: Diverticulosis, GERD Genitourinary History: Reports: None DIRECTOR OF [employer]IC [employer]ER[employer] History: Reports: , Spontaneous Musculoskeletal History: Reports: Arthritis, Back Pain, Chronic, Neck Pain, Chronic, Other (See Below) Other Musculoskeletal History: LYMPHEDEMA OF BILAT LE Neurological History: Reports: None Psychiatric History: Reports: Anxiety Endocrine/Metabolic History: Reports: Hypothyroidism Hematologic History: Reports: Anemia, Blood Transfusion(s) Immunologic History: Reports: Immunosuppression Oncologic (Cancer) History: Reports: Liver, Lung, Other (See Below) Other Oncologic History: pelvic area Dermatologic History: Reports: Other (See Below) Other Dermatologic History: lipidema - Infectious Disease History Infectious Disease History: - Past Surgical History Head Surgeries/Procedures: Reports: None HEENT Surgical History: Reports: Adenoidectomy, Tonsillectomy Cardiovascular Surgical History: Reports: Carotid Endarterectomy, Other (See Below) Other Cardiovascular Surgeries/Procedures: Edema feet Respiratory Surgical History: Reports: Lung Resection Other Respiratory Surgeries/Procedures: R) lung resection GI Surgical History: Reports: Appendectomy, Colonoscopy, EGD Female Surgical History: Reports: Section, Hysterectomy Endocrine Surgical History: Reports: None Neurological Surgical History: Reports: None Musculoskeletal Surgical History: Reports: Other (See Below) Other Musculoskeletal Surgeries/Procedures:: Knee surgery Oncologic Surgical History: Reports: Lobectomy, Other (See Below) Other Oncologic Surgeries/Procedures: SKIN BIOPSY; RIGHT UPPER LOBECTOMY Dermatological Surgical History: Reports: Skin Biopsy Social & Family History - Family History Family Medical History: Noncontributory Cardiac: Reports: Afib, Hypertension Oncologic: Reports: Bone, Lung - Tobacco Use Smoking Status *Q: Former Smoker Years of Tobacco use: 10 Packs/Tins Daily: 1 Used Tobacco, but Quit: Yes Month/Year Tobacco Last Used: 1969 - Caffeine Use Caffeine Use: Reports: None - Recreational Drug Use Recreational Drug Use: No ED ROS GENERAL - Review of Systems Review Of Systems: See Below Constitutional: Denies: Fever, Chills Respiratory: Reports: Shortness of Breath. Denies: Wheezing, Cough Cardiovascular: Reports: Blood Pressure Problem, Edema (patient reports not increased from baseline, bilateral lower extremities), Palpitations. Denies: Chest Pain, Lightheadedness, Syncope GI/Abdominal: Denies: Abdominal Pain, Diarrhea, Nausea, Vomiting Neurological: Denies: Dizziness, Weakness ED EXAM, GENERAL - Physical Exam Exam: See Below Exam Limited By: No Limitations General Appearance: Alert, No Apparent Distress Head: Atraumatic, Normocephalic Neck: No: Carotid Bruit Respiratory/Chest: No Respiratory Distress, Lungs Clear, Normal Breath Sounds, Chest Non-Tender Cardiovascular: Normal Peripheral Pulses, Regular Rate, Rhythm, No Murmur GI/Abdominal: Normal Bowel Sounds, Soft, Non-Tender Psychiatric: Normal Affect, Normal Mood Skin Exam: Warm, Dry, Intact EKG INTERPRETATION EKG Date: 06/01/19 Time: 16:20 Rhythm: NSR [place]: Normal P-Wave: Present QRS: Normal ST-T: Normal QT: Normal Comparison: NA - No Prior EKG Course - Vital Signs Last Recorded V/S: Last Vital Signs Temp 98.2 F 06/01/19 16:24 Pulse 73 06/01/19 16:24 Resp 14 06/01/19 16:24 BP 176/65 H 06/01/19 18:32 Pulse Ox 100 06/01/19 16:24 - Orders/Labs/Meds Orders: Active Orders 24 hr Category Date Time Status EKG 12 Lead [EKG Documentation Completion] [RC] STAT Care 06/01/19 16:25 Active Labs: Laboratory Tests 06/01/19 06/01/19 06/01/19 Range/Units 16:45 16:45 16:45 WBC 2.6 L (5.0-10.0) 10^3/uL RBC 3.07 L (4.2-5.4) 10^6/uL Hgb 10.1 L D (12.0-16.0) g/dL Hct 29.7 L (37.0-47.0) % MCV 96.7 D (80-100) fL MCH 32.9 (27.0-34.0) pg MCHC 34.0 (33.0-35.0) g/dL Plt Count 126 L (150-450) 10^3/uL Neut % (Auto) 62.2 (42.2-75.2) % Lymph % (Auto) 28.2 (20.5-50.1) % Loving % (Auto) 5.0 (2-8) % Eos % (Auto) 4.2 H (1.0-3.0) % Baso % (Auto) 0.4 (0.0-1.0) % D-Dimer, Quantitative < 100 (0-400) ng/mL Sodium 137 (135-145) mmol/L Potassium 3.8 (3.6-5.0) mmol/L Chloride 104 (101-111) mmol/L Carbon Dioxide 25.0 (21.0-31.0) mmol/L Anion Gap 11.8 BUN 21 H (7-18) mg/dL Creatinine 0.6 (0.6-1.3) mg/dL Est Cr Clr Drug Dosing 61.68 mL/min Estimated GFR (MDRD) > 60 Glucose 98 (74-105) mg/dL Calcium 8.9 D (8.4-10.2) mg/dl Troponin I < 0.02 (0.00-0.02) ng/ml B-Natriuretic Peptide 395 H (0-100) pg/ml Meds: Medications Discontinued Medications Generic Name Dose Route Start Last Admin Trade Name Israelq PRN Reason Stop Dose Admin Clonidine HCl 0.1 mg 06/01/19 17:44 06/01/19 17:55 Catapres PO 06/01/19 17:45 0.1 mg ONETIME ONE Administration Clonidine HCl 0.1 mg 06/01/19 18:23 Catapres PO 06/01/19 18:24 ONETIME ONE - Re-Assessments/Exams Free Text/Narrative Re-Assessment/Exam: 06/01/19 17:47 Blood pressures remain elevated in 180s systolic. Free Text/Narrative Re-Assessment/Exam: 06/01/19 18:48 Blood pressure 164/53 Departure - Departure Time of Disposition: 18:52 Disposition: Home, Self-Care 01 Condition: Fair Clinical Impression: Palpitations Atrial fibrillation Qualifiers: Atrial fibrillation type: paroxysmal Qualified Code(s): I48.0 - Paroxysmal atrial fibrillation Hypertension Qualifiers: Hypertension type: unspecified Qualified Code(s): I10 - Essential (primary) hypertension Instructions: How to Take Your Blood Pressure, [id number] Forms: ED Department Discharge Additional Instructions: Recommended follow-up with PCP within next 1-2 days to discuss blood pressure management. Ok to take 1/2 tab of hydralazine which patient has on hand if blood pressure is elevated prior to appointment. Sepsis Event Note - Evaluation Sepsis Screening Result: No Definite Risk - Focused Exam Vital Signs: Vital Signs Temp Pulse Resp BP BP Pulse Ox 06/01/19 18:32 176/65 H 06/01/19 17:55 187/69 H 06/01/19 16:32 185/61 H 06/01/19 16:24 98.2 F 73 14 200/77 H 100 Date Exam was Performed: 06/01/19 Time Exam was Performed: 18:48
[2019-06-01 17:14] LABS: ANION GAP 11.8; CHLORIDE,CL 104 mmol/L (101-111); SODIUM,NA 137 mmol/L (135-145)
[2019-06-01] MEDS ORDERED: cloNIDine 0.1 MG Tab PO ONE ×2 (17:44→18:23)
[2019-06-01 19:16] VITALS: BP 151/50
== END 2019-06-01 19:15 | disposition home or self-care (01) ==
LOC: DL.ED 14:51
DX: I48.0 Paroxysmal atrial fibrillation (principal); I10 Essential (primary) hypertension; E78.00 Pure hypercholesterolemia, unspecified; K21.9 Gastro-esophageal reflux disease without esophagitis; E03.9 Hypothyroidism, unspecified; F41.9 Anxiety disorder, unspecified; Z85.118 Personal history of other malignant neoplasm of bronchus and lung; Z88.8 Allergy status to other drugs, medicaments and biological substances; Z79.82 Long term (current) use of aspirin; Z79.899 Other long term (current) drug therapy; Z79.01 Long term (current) use of anticoagulants; Z87.891 Personal history of nicotine dependence
CPT/HCPCS: 36415; 36556; 80048; 83880; 84484; 85025; 85379; 93005; 99285; A9270; J1642

== ENCOUNTER 2020-01-06 04:15 | Emergency (ER) | payer MEDICARE, BC ==
--- NOTE | 2020-01-06 04:47 | EDM.PDOC ---
ED HPI GENERAL MEDICAL PROBLEM - General Chief Complaint: Trauma Stated Complaint: AMBULANCE Time Seen by Provider: 01/06/20 04:44 Source of Information: Reports: Patient, EMS, RN History Limitations: Reports: No Limitations - History of Present Illness INITIAL COMMENTS - FREE TEXT/NARRATIVE: ED via [facility] with laceration to back of head. States rolled over and fell out of bed, then walked to bathroom. Laceration to back of head. No hip pain - Related Data Allergies Allergy/AdvReac Type Severity Reaction Status Date / Time alendronate sodium Allergy Unknown UNKNOWN Verified 06/01/19 16:28 atorvastatin calcium Allergy Unknown MUSCLE Verified 06/01/19 16:28 [From Lipitor] ACHES/PAINS caffeine Allergy Unknown UNKNOWN Verified 06/01/19 16:28 esomeprazole magnesium Allergy Unknown UNKNOWN Verified 06/01/19 16:28 [From Nexium] lansoprazole [From Prevacid] Allergy Unknown Diarrhea Verified 06/01/19 16:28 pravastatin sodium Allergy Unknown MUSCLE Verified 06/01/19 16:28 [From Pravachol] CRAMPS/SPAMS carboplatin Allergy Hives Verified 06/01/19 16:28 pantoprazole [From Protonix] Allergy Other Verified 06/01/19 16:28 potassium chloride AdvReac Nausea Verified 06/01/19 16:28 Home Meds: Home Meds Aspirin [Adult Low Dose Aspirin EC] 81 mg PO DAILY 07/08/13 [History] Calcium Carbonate [Tums] 500 mg PO BEDTIME PRN 07/08/13 [History] LORazepam 0.5 mg PO BEDTIME PRN 07/08/13 [History] Levothyroxine Sodium 100 mcg PO ASDIRECTED 07/08/13 [History] Omeprazole 20 mg PO PCBREAKFAST 07/08/13 [History] Potassium Chloride 20 meq PO TID 07/08/13 [History] Warfarin Sodium [Jantoven] 4 mg PO ASDIRECTED 07/08/13 [History] Furosemide 20 mg PO BID 06/28/15 [History] Rosuvastatin Calcium [Crestor] 5 mg PO BEDTIME 06/28/15 [History] Acetaminophen [Tylenol Extra Strength] 1,000 mg PO Q6H PRN 04/21/16 [History] Lidocaine/Prilocaine [Lidocaine-Prilocaine Cream] 1 applic TOP DAILY PRN 04/21/16 [History] Sotalol [Betapace] 80 mg PO BID 04/21/16 [History] Vit A/Vit C/Vit E/Zinc/Copper [Preservision] 1 tab PO DAILY 01/22/17 [History] Calcium Carbonate/Vitamin D3 [Calcium 600 + Vit D 200] 1 tab PO DAILY 04/02/17 [History] Folic Acid 1 mg PO DAILY 04/02/17 [History] Multivit with Min #53/FA/K/Q10 [Dekas Plus Softgel] 1 tab PO DAILY 04/02/17 [History] Ondansetron [Zofran] 8 mg PO Q8H PRN 03/24/19 [History] Sennosides [Senokot] 8.6 mg PO DAILY 03/24/19 [History] Magnesium Oxide 250 mg PO ASDIRECTED 05/19/19 [History] Phosphorus #1 [Virt-Phos 250 Neutral Tablet] 1 tab PO ASDIRECTED 05/19/19 [History] Pyridoxine HCl [Vitamin B-6] 250 mg PO DAILY 05/19/19 [History] Past Medical History HEENT History: Reports: Impaired Vision, Macular Degeneration, Other (See Below) Other HEENT History: ringing in the ears to have a MRI. RECEIVES EYE INJECTIONS FOR MAC DEGENERATION. Dry macular degeneration Cardiovascular History: Reports: Afib, Heart Murmur, High Cholesterol, Hypertension, Stents Other Cardiovascular History: carotid stent Respiratory History: Reports: Other (See Below) Other Respiratory History: RIGHT UPPER LOBE Lung cancer Gastrointestinal History: Reports: Diverticulosis, GERD Genitourinary History: Reports: None [employer]ENT History: Reports: , Spontaneous Musculoskeletal History: Reports: Arthritis, Back Pain, Chronic, Neck Pain, Chronic, Other (See Below) Other Musculoskeletal History: LYMPHEDEMA OF BILAT LE Neurological History: Reports: None Psychiatric History: Reports: Anxiety Endocrine/Metabolic History: Reports: Hypothyroidism Hematologic History: Reports: Anemia, Blood Transfusion(s) Immunologic History: Reports: Immunosuppression Oncologic (Cancer) History: Reports: Liver, Lung, Other (See Below) Other Oncologic History: pelvic area Dermatologic History: Reports: Other (See Below) Other Dermatologic History: lipidema - Infectious Disease History Infectious Disease History: - Past Surgical History Head Surgeries/Procedures: Reports: None HEENT Surgical History: Reports: Adenoidectomy, Tonsillectomy Cardiovascular Surgical History: Reports: Carotid Endarterectomy, Other (See Below) Other Cardiovascular Surgeries/Procedures: Edema feet Respiratory Surgical History: Reports: Lung Resection Other Respiratory Surgeries/Procedures: R) lung resection GI Surgical History: Reports: Appendectomy, Colonoscopy, EGD Female Surgical History: Reports: Section, Hysterectomy Endocrine Surgical History: Reports: None Neurological Surgical History: Reports: None Musculoskeletal Surgical History: Reports: Other (See Below) Other Musculoskeletal Surgeries/Procedures:: Knee surgery Oncologic Surgical History: Reports: Lobectomy, Other (See Below) Other Oncologic Surgeries/Procedures: SKIN BIOPSY; RIGHT UPPER LOBECTOMY Dermatological Surgical History: Reports: Skin Biopsy Social & Family History - Family History Family Medical History: Noncontributory Cardiac: Reports: Afib, Hypertension Oncologic: Reports: Bone, Lung - Caffeine Use Caffeine Use: Reports: None Review of Systems - Review of Systems Review Of Systems: Comprehensive ROS is negative, except as noted in HPI. ED EXAM, GENERAL - Physical Exam Exam: See Below Exam Limited By: No Limitations General Appearance: Alert, No Apparent Distress Eye Exam: Bilateral Eye: EOMI Ears: Normal External Exam, Normal TMs Nose: Normal Inspection Throat/Mouth: Normal Inspection Head: Atraumatic, Normocephalic Neck: Normal Inspection Respiratory/Chest: No Respiratory Distress, Lungs Clear, Normal Breath Sounds Cardiovascular: Normal Peripheral Pulses, Regular Rate, Rhythm Back Exam: Full Range of Motion Extremities: Normal Inspection Neurological: Alert, Oriented, Normal Cognition, No Motor/Sensory Deficits Psychiatric: Normal Affect, Normal Mood Skin Exam: Warm, Wound/Incision (posterior scalp laceration) ED TRAUMA PROCEDURES - Laceration/Wound Repair Left Mid-Posterior Head Lac/Wound Length In cm: 2 Appearance: Superficial Skin Prep: Chlorhexidine (Hibiciens), Saline Closed With: Leeanne (x3) Course - Orders/Labs/Meds Orders: Active Orders 24 hr Category Date Time Status CBC WITH AUTO DIFF [HEME] Stat Lab 01/06/20 04:34 Results MANUAL DIFFERENTIAL QA/NC [HEME] Stat Lab 01/06/20 04:34 Results Labs: Laboratory Tests 01/06/20 01/06/20 01/06/20 Range/Units 04:34 04:34 04:34 WBC 5.3 (5.0-10.0) 10^3/uL RBC 3.71 L (4.2-5.4) 10^6/uL Hgb 10.6 L (12.0-16.0) g/dL Hct 32.2 L (37.0-47.0) % MCV 86.8 D (80-100) fL MCH 28.6 (27.0-34.0) pg MCHC 32.9 L (33.0-35.0) g/dL Plt Count 171 (150-450) 10^3/uL Neut % (Auto) 46.1 (42.2-75.2) % Lymph % (Auto) 28.5 (20.5-50.1) % Webb % (Auto) 13.7 H (2-8) % Eos % (Auto) 11.1 H (1.0-3.0) % Baso % (Auto) 0.6 (0.0-1.0) % Add Manual Diff Yes PT 21.4 H D (9.0-12.0) SEC INR 2.3 H (0.9-1.2) Sodium 143 (136-145) mmol/L Potassium 4.2 (3.5-5.1) mmol/L Chloride 106 (98-107) mmol/L Carbon Dioxide 32 (21-32) mmol/L Anion Gap 9.2 (7-13) mEq/L BUN 34 H (7-18) mg/dL Creatinine 1.10 H (0.55-1.02) mg/dL Est Cr Clr Drug Dosing TNP Estimated GFR (MDRD) 47 BUN/Creatinine Ratio 30.9 (No establ ref range) Glucose 105 H (74-99) mg/dL Calcium 9.1 (8.5-10.1) mg/dL Total Bilirubin 0.6 (0.2-1.0) mg/dL AST 22 (15-37) U/L ALT 27 (14-59) U/L Alkaline Phosphatase 108 (46-116) U/L Total Protein 6.5 (6.4-8.2) g/dL Albumin 3.3 L (3.4-5.0) g/dL Globulin 3.2 Albumin/Globulin Ratio 1.03 - Re-Assessments/Exams Free Text/Narrative Re-Assessment/Exam: 01/06/20 05:13 Remains alert, denies pain, CT head and Neck no acute findings. Departure - Departure Time of Disposition: 05:15 Disposition: DC/[facility] Condition: Good Clinical Impression: Chronic anticoagulation Occipital scalp laceration Qualifiers: Encounter type: initial encounter Qualified Code(s): S01.01XA - Laceration without foreign body of scalp, initial encounter Contusion of scalp Qualifiers: Encounter type: initial encounter Qualified Code(s): S00.03XA - Contusion of scalp, initial encounter - Discharge Information *PRESCRIPTION DRUG MONITORING PROGRAM REVIEWED*: No *COPY OF PRESCRIPTION DRUG MONITORING REPORT IN PATIENT YEE: No Instructions: Facial or Scalp Contusion, Sutures, Leeanne, or Adhesive Wound Closure, [id number] Forms: ED Department Discharge Additional Instructions: head injury instruction, urgent follow up if confusion, repeated vomiting, severe headache leeanne out 10-14 days ice pack to acalp tonight keep wound clean and dry, may shower in 24 hours - My Orders Last 24 Hours: My Active Orders 01/06/20 04:34 CBC WITH AUTO DIFF [HEME] Stat MANUAL DIFFERENTIAL QA/NC [HEME] Stat - Assessment/Plan Last 24 Hours: My Active Orders 01/06/20 04:34 CBC WITH AUTO DIFF [HEME] Stat MANUAL DIFFERENTIAL QA/NC [HEME] Stat
[2020-01-06 04:59] LABS: ANION GAP 9.2 mEq/L (7-13); CHLORIDE,CL 106 mmol/L (98-107); SODIUM,NA 143 mmol/L (136-145)
--- NOTE | 2020-01-06 05:04 | CT ---
PROCEDURE INFORMATION: Exam: CT Head Without Contrast Exam date and time: 01/06/2020 4:39 AM Age: 85 years old Clinical indication: Injury or trauma; Fall; Blunt trauma (contusions or hematomas); Additional info: Fell out of bed hit head on night stand TECHNIQUE: Imaging protocol: Computed tomography of the head without contrast. Radiation optimization: All CT scans at this facility use at least one of these dose optimization techniques: automated exposure control; mA and/or kV adjustment per patient size (includes targeted exams where dose is matched to clinical indication); or iterative reconstruction. COMPARISON: No relevant prior studies available. FINDINGS: Brain: There is diffuse cerebral atrophy present, consistent with this patient's age. No evidence of acute ischemia. No hemorrhage. Cerebral ventricles: No ventriculomegaly. Bones/joints: Unremarkable. No acute fracture. Paranasal sinuses: Visualized sinuses are unremarkable. No fluid levels. Mastoid air cells: There are fluid opacified left mastoid air cells. Orbital cavity: The appearance of the globes is suggestive of prior cataract surgery. Vasculature: Calcified atherosclerosis of the intracranial ICAs. Soft tissues: Mild soft tissue contusion with skin leeanne of the left posterior head. IMPRESSION: 1. Mild soft tissue contusion of the left posterior head. No acute intracranial abnormality. 2. Fluid opacified left mastoid air cells suggesting mastoiditis.
--- NOTE | 2020-01-06 05:10 | CT ---
PROCEDURE INFORMATION: Exam: CT Cervical Spine Without Contrast Exam date and time: 01/06/2020 4:39 AM Age: 85 years old Clinical indication: Injury or trauma; Fall; Blunt trauma; Additional info: Fell out of bed hit head on night stand TECHNIQUE: Imaging protocol: Computed tomography images of the cervical spine without contrast. Radiation optimization: All CT scans at this facility use at least one of these dose optimization techniques: automated exposure control; mA and/or kV adjustment per patient size (includes targeted exams where dose is matched to clinical indication); or iterative reconstruction. COMPARISON: No relevant prior studies available. FINDINGS: Tubes, catheters and devices: Right chest Port-A-Cath in place, partially imaged. Vertebrae: No acute fractures. There is straightening of the normal cervical lordosis. Mild 1 mm retrolisthesis of C4 on C5. Discs/Spinal canal/Neural foramina: Multilevel cervical degenerative disc disease and bilateral facet degeneration. Multilevel small posterior disc bulges. Mild to moderate central canal narrowing at C4-C5. Soft tissues: Multiple surgical clips in the left neck soft tissues. Mastoid air cells: Fluid opacified left mastoid air cells. Lungs: Multiple nodules in both upper lungs, one of the largest in the posterior right upper lobe measuring up to 10 mm. IMPRESSION: 1. No acute fractures. 2. Multiple nodules in both upper lungs, most consistent with metastases.
== END 2020-01-06 06:12 ==
LOC: DL.ED 04:15
DX: S01.01XA Laceration without foreign body of scalp, initial encounter (principal); F41.9 Anxiety disorder, unspecified; E03.9 Hypothyroidism, unspecified; M19.90 Unspecified osteoarthritis, unspecified site; K21.9 Gastro-esophageal reflux disease without esophagitis; I48.91 Unspecified atrial fibrillation; E78.00 Pure hypercholesterolemia, unspecified; I10 Essential (primary) hypertension; Z95.5 Presence of coronary angioplasty implant and graft; Z79.82 Long term (current) use of aspirin; Z79.899 Other long term (current) drug therapy; Z88.8 Allergy status to other drugs, medicaments and biological substances; Z91.018 Allergy to other foods; Z88.3 Allergy status to other anti-infective agents; W06.XXXA Fall from bed, initial encounter
CPT/HCPCS: 12001; 36415; 70450; 72125; 80053; 85025; 85610; 99284-25

== ENCOUNTER 2020-09-19 16:55 | Emergency (ER) | payer MEDICARE, BC ==
--- NOTE | 2020-09-19 17:28 | EDM.PDOC ---
"<Lotus Farmer - Last Filed: 09/19/20 19:51> ED HPI GENERAL MEDICAL PROBLEM - General Stated Complaint: STOMACH PAIN Time Seen by Provider: 09/19/20 17:27 Source of Information: Reports: Patient, RN, RN Notes Reviewed History Limitations: Reports: No Limitations - History of Present Illness INITIAL COMMENTS - FREE TEXT/NARRATIVE: Sherley is an 85 y/o female with a history of lung, pancreatic, and kidney cancer who presents to the ED via personal vehicle with complaints of LUQ pain. The patient reports her symptoms began two nights ago, and was only in the night, however she has experienced the same pain throughout the day today. She noticed radiation of the pain into her chest which was alleviated with a dose of TUMS. She denies recent illness, fever, shaking chills, palpitations, nausea, vomiting, or diarrhea. She reports her last BM was today, but was smaller than normal. Abdominal Pain Score (Numeric/FACES): 7 - Related Data Allergies Allergy/AdvReac Type Severity Reaction Status Date / Time alendronate sodium Allergy Unknown UNKNOWN Verified 09/19/20 17:35 atorvastatin calcium Allergy Unknown MUSCLE Verified 09/19/20 17:35 [From Lipitor] ACHES/PAINS caffeine Allergy Unknown UNKNOWN Verified 09/19/20 17:35 esomeprazole magnesium Allergy Unknown UNKNOWN Verified 09/19/20 17:35 [From Nexium] lansoprazole [From Prevacid] Allergy Unknown Diarrhea Verified 09/19/20 17:35 pravastatin sodium Allergy Unknown MUSCLE Verified 09/19/20 17:35 [From Pravachol] CRAMPS/SPAMS carboplatin Allergy Hives Verified 09/19/20 17:35 pantoprazole [From Protonix] Allergy Other Verified 09/19/20 17:35 potassium chloride AdvReac Nausea Verified 09/19/20 17:35 Home Meds: Home Meds Aspirin [Adult Low Dose Aspirin EC] 81 mg PO DAILY 07/08/13 [History] Calcium Carbonate [Tums] 500 mg PO BEDTIME PRN 07/08/13 [History] LORazepam 0.5 mg PO BEDTIME PRN 07/08/13 [History] Levothyroxine Sodium 100 mcg PO ASDIRECTED 07/08/13 [History] Omeprazole 20 mg PO PCBREAKFAST 07/08/13 [History] Potassium Chloride 20 meq PO TID 07/08/13 [History] Warfarin Sodium [Jantoven] 4 mg PO ASDIRECTED 07/08/13 [History] Furosemide 20 mg PO BID 06/28/15 [History] Rosuvastatin Calcium [Crestor] 10 mg PO BEDTIME 06/28/15 [History] Acetaminophen [Tylenol Extra Strength] 1,000 mg PO Q6H PRN 04/21/16 [History] Lidocaine/Prilocaine [Lidocaine-Prilocaine Cream] 1 applic TOP DAILY PRN 04/21/16 [History] Sotalol [Betapace] 80 mg PO BID 04/21/16 [History] Vit A/Vit C/Vit E/Zinc/Copper [Preservision] 1 tab PO DAILY 01/22/17 [History] Calcium Carbonate/Vitamin D3 [Calcium 600 + Vit D 200] 1 tab PO DAILY 04/02/17 [History] Folic Acid 1 mg PO DAILY 04/02/17 [History] Multivit with Min #53/FA/K/Q10 [Dekas Plus Softgel] 1 tab PO DAILY 04/02/17 [History] Ondansetron [Zofran] 8 mg PO Q8H PRN 03/24/19 [History] Sennosides [Senokot] 8.6 mg PO DAILY 03/24/19 [History] Magnesium Oxide 250 mg PO ASDIRECTED 05/19/19 [History] Phosphorus #1 [Virt-Phos 250 Neutral Tablet] 1 tab PO ASDIRECTED 05/19/19 [History] Pyridoxine HCl [Vitamin B-6] 250 mg PO DAILY 05/19/19 [History] Past Medical History HEENT History: Reports: Impaired Vision, Macular Degeneration, Other (See Below) Other HEENT History: ringing in the ears to have a MRI. RECEIVES EYE INJECTIONS FOR MAC DEGENERATION. Dry macular degeneration Cardiovascular History: Reports: Afib, Heart Murmur, High Cholesterol, Hypertension, Stents Other Cardiovascular History: carotid stent Respiratory History: Reports: Other (See Below) Other Respiratory History: RIGHT UPPER LOBE Lung cancer Gastrointestinal History: Reports: Diverticulosis, GERD Genitourinary History: Reports: None [employer]ATOR History: Reports: , Spontaneous Musculoskeletal History: Reports: Arthritis, Back Pain, Chronic, Neck Pain, Chronic, Other (See Below) Other Musculoskeletal History: LYMPHEDEMA OF BILAT LE Neurological History: Reports: None Psychiatric History: Reports: Anxiety Endocrine/Metabolic History: Reports: Hypothyroidism Hematologic History: Reports: Anemia, Blood Transfusion(s) Immunologic History: Reports: Immunosuppression Oncologic (Cancer) History: Reports: Liver, Lung, Other (See Below) Other Oncologic History: pelvic area Dermatologic History: Reports: Other (See Below) Other Dermatologic History: lipidema - Infectious Disease History Infectious Disease History: - Past Surgical History Head Surgeries/Procedures: Reports: None HEENT Surgical History: Reports: Adenoidectomy, Tonsillectomy Cardiovascular Surgical History: Reports: Carotid Endarterectomy, Other (See Below) Other Cardiovascular Surgeries/Procedures: Edema feet Respiratory Surgical History: Reports: Lung Resection Other Respiratory Surgeries/Procedures: R) lung resection GI Surgical History: Reports: Appendectomy, Colonoscopy, EGD Female Surgical History: Reports: Section, Hysterectomy Endocrine Surgical History: Reports: None Neurological Surgical History: Reports: None Musculoskeletal Surgical History: Reports: Other (See Below) Other Musculoskeletal Surgeries/Procedures:: Knee surgery Oncologic Surgical History: Reports: Lobectomy, Other (See Below) Other Oncologic Surgeries/Procedures: SKIN BIOPSY; RIGHT UPPER LOBECTOMY Dermatological Surgical History: Reports: Skin Biopsy Social & Family History - Family History Family Medical History: No Pertinent Family History Cardiac: Reports: Afib, Hypertension Oncologic: Reports: Bone, Lung - Caffeine Use Caffeine Use: Reports: None ED ROS GENERAL - Review of Systems Review Of Systems: Comprehensive ROS is negative, except as noted in HPI. ED EXAM, GI/ABD - Physical Exam Exam: See Below Exam Limited By: No Limitations General Appearance: Alert, No Apparent Distress Eyes: Bilateral: Normal Appearance, EOMI Ears: Normal External Exam, Hearing Grossly Normal Nose: Normal Inspection, Normal Mucosa, No Blood Throat/Mouth: Normal Voice, No Airway Compromise. No: Normal Oropharynx (Dry mucous membranes) Head: Atraumatic, Normocephalic Neck: Normal Inspection, Supple, Non-Tender, Full Range of Motion. No: Lym phadenopathy (L), Lymphadenopathy (R) Respiratory/Chest: No Respiratory Distress, Lungs Clear, Normal Breath Sounds, No Accessory Muscle Use, Chest Non-Tender Cardiovascular: Normal Peripheral Pulses, Regular Rate, Rhythm, No Edema, No Gallop, No JVD, No Rub, Systolic Murmur (2/6 murmur, loudest over pulmonic area) GI/Abdominal Exam: Normal Bowel Sounds, No Distention, No Abnormal Bruit, No Mass, Pelvis Stable, Tender (To LUQ) (Female) Exam: Deferred Rectal (Female) Exam: Deferred Back Exam: Normal Inspection, Full Range of Motion. No: CVA Tenderness (L), CVA Tenderness (R) Extremities: Normal Range of Motion, Non-Tender, No Pedal Edema (Lymphedema), Normal Capillary Refill. No: Joint Swelling, Arm Pain, Leg Pain Neurological: Alert, Oriented, CN II-XII Intact, Normal Cognition, Normal Gait, No Motor/Sensory Deficits Psychiatric: Normal Affect, Normal Mood Skin Exam: Warm, Dry, Intact, Normal Color, No Rash. No: Cyanosis, Erythema, Mottled, Pallor, Petechiae Lymphatic: No Adenopathy #1 Interpretation EKG Date: 09/19/20 Time: 17:36 Rhythm: NSR Rate (Beats/Min): 63 [place]: Normal P-Wave: Present QRS: Normal ST-T: Normal QT: Prolonged (0.501) NE/PQ Interval: 0.174 Comparison: No Change EKG Interpretation Comments: NSR; No evidence of acute myocardial ischemia Course - Re-Assessments/Exams Free Text/Narrative Re-Assessment/Exam: 09/19/20 Care of patient transferred to Fuentes Wilkerson PA-C at 1900. Departure - Departure Disposition: Home, Self-Care 01 Clinical Impression: GERD (gastroesophageal reflux disease) Qualifiers: Esophagitis presence: with esophagitis Qualified Code(s): K21.0 - Gastro- esophageal reflux disease with esophagitis - Discharge Information Instructions: Food Choices for Gastroesophageal Reflux Disease, Adult, Easy-to- Read Forms: ED Department Discharge Care Plan Goals: The patient was advised of the examination, lab and CT results. The patient reports symptom improvement after being given a GI Cocktail. The patient was encouraged to stick to a bland diet. The patient should take a stool softener or MiraLax as directed. If the patient has any additional symptoms or concerns, the patient was encouraged to either return to the emergency department or visit her primary care facility. <Alberto Wilkerson - Last Filed: 09/19/20 20:34> Course - Vital Signs Last Recorded V/S: Last Vital Signs Temp 98.7 F 09/19/20 17:25 Pulse 68 09/19/20 19:46 Resp 21 H 09/19/20 19:46 BP 187/74 H 09/19/20 19:46 Pulse Ox 96 09/19/20 19:46 - Orders/Labs/Meds Orders: Active Orders 24 hr Category Date Time Status EKG Documentation Completion [RC] STAT Care 09/19/20 17:28 Active Labs: Laboratory Tests 09/19/20 09/19/20 09/19/20 Range/Units 17:21 17:21 17:21 WBC 8.9 (5.0-10.0) 10^3/uL RBC 4.07 L (4.2-5.4) 10^6/uL Hgb 12.0 (12.0-16.0) g/dL Hct 36.1 L (37.0-47.0) % MCV 88.7 (80-100) fL MCH 29.5 (27.0-34.0) pg MCHC 33.2 (33.0-35.0) g/dL Plt Count 207 (150-450) 10^3/uL Neut % (Auto) 58.0 (42.2-75.2) % Lymph % (Auto) 20.6 (20.5-50.1) % [place] % (Auto) 11.2 H (2-8) % Eos % (Auto) 9.5 H (1.0-3.0) % Baso % (Auto) 0.7 (0.0-1.0) % PT (9.0-12.0) SEC INR (0.9-1.2) APTT (22.0-34.0) SEC Sodium 141 (136-145) mmol/L Potassium 3.6 (3.5-5.1) mmol/L Chloride 103 (98-107) mmol/L Carbon Dioxide 27 (21-32) mmol/L Anion Gap 14.6 H (7-13) mEq/L BUN 21 H (7-18) mg/dL Creatinine 1.02 (0.55-1.02) mg/dL Est Cr Clr Drug Dosing 31.31 mL/min Estimated GFR (MDRD) 51 BUN/Creatinine Ratio 20.6 (No establ ref range) Glucose 106 H (70-99) mg/dL Lactic Acid 0.5 (0.4-2.0) mmol/L Calcium 8.4 L (8.5-10.1) mg/dL Total Bilirubin 1.0 (0.2-1.0) mg/dL AST 28 (15-37) U/L ALT 30 (14-59) U/L Alkaline Phosphatase 211 H (46-116) U/L Troponin I High Sens 12 (<=51) pg/mL C-Reactive Protein 0.9 (0.0-0.9) mg/dL Total Protein 7.1 (6.4-8.2) g/dL Albumin 3.3 L (3.4-5.0) g/dL Globulin 3.8 Albumin/Globulin Ratio 0.87 Urine Color (YELLOW) Urine Appearance (CLEAR) Urine pH (5.0-9.0) Ur Specific [place] (1.005-1.030) Urine Protein (NEGATIVE) Urine Glucose (UA) (NEGATIVE) Urine Ketones (NEGATIVE) Urine Occult Blood (NEGATIVE) Urine Nitrite (NEGATIVE) Urine Bilirubin (NEGATIVE) Urine Urobilinogen (0.2-1.0) mg/dL Ur Leukocyte Esterase (NEGATIVE) Urine RBC /HPF Urine WBC (0-5/HPF) /HPF Ur Epithelial Cells (NOT SEEN) /HPF Urine Bacteria (0-FEW/HPF) /HPF 09/19/20 09/19/20 Range/Units 17:57 18:19 WBC (5.0-10.0) 10^3/uL RBC (4.2-5.4) 10^6/uL Hgb (12.0-16.0) g/dL Hct (37.0-47.0) % MCV (80-100) fL MCH (27.0-34.0) pg MCHC (33.0-35.0) g/dL Plt Count (150-450) 10^3/uL Neut % (Auto) (42.2-75.2) % Lymph % (Auto) (20.5-50.1) % [place] % (Auto) (2-8) % Eos % (Auto) (1.0-3.0) % Baso % (Auto) (0.0-1.0) % PT 24.9 H (9.0-12.0) SEC INR 2.5 H (0.9-1.2) APTT 36.3 H (22.0-34.0) SEC Sodium (136-145) mmol/L Potassium (3.5-5.1) mmol/L Chloride (98-107) mmol/L Carbon Dioxide (21-32) mmol/L Anion Gap (7-13) mEq/L BUN (7-18) mg/dL Creatinine (0.55-1.02) mg/dL Est Cr Clr Drug Dosing mL/min Estimated GFR (MDRD) BUN/Creatinine Ratio (No establ ref range) Glucose (70-99) mg/dL Lactic Acid (0.4-2.0) mmol/L Calcium (8.5-10.1) mg/dL Total Bilirubin (0.2-1.0) mg/dL AST (15-37) U/L ALT (14-59) U/L Alkaline Phosphatase (46-116) U/L Troponin I High Sens (<=51) pg/mL C-Reactive Protein (0.0-0.9) mg/dL Total Protein (6.4-8.2) g/dL Albumin (3.4-5.0) g/dL Globulin Albumin/Globulin Ratio Urine Color Yellow (YELLOW) Urine Appearance Slightly cloudy (CLEAR) Urine pH 7.0 (5.0-9.0) Ur Specific [place] 1.020 (1.005-1.030) Urine Protein 30 H (NEGATIVE) Urine Glucose (UA) Negative (NEGATIVE) Urine Ketones Negative (NEGATIVE) Urine Occult Blood Large H (NEGATIVE) Urine Nitrite Negative (NEGATIVE) Urine Bilirubin Negative (NEGATIVE) Urine Urobilinogen 1.0 (0.2-1.0) mg/dL Ur Leukocyte Esterase Negative (NEGATIVE) Urine RBC 40-50 H /HPF Urine WBC 0-5 (0-5/HPF) /HPF Ur Epithelial Cells Moderate H (NOT SEEN) /HPF Urine Bacteria Moderate H (0-FEW/HPF) /HPF Meds: Medications Discontinued Medications Generic Name Dose Route Start Last Admin Trade Name Freq PRN Reason Stop Dose Admin Al Hydroxide/Mg Hydroxide 30 ml 09/19/20 18:22 09/19/20 19:02 Gi Cocktail Oral Solution 30 Ml PO 09/19/20 18:23 30 ml ONETIME ONE Administration Iopamidol 100 ml 09/19/20 19:10 09/19/20 19:14 Iopamidol 612 Mg/Ml 100 Ml Bottle IVPUSH 09/19/20 19:11 75 ml ONETIME ONE Administration - Radiology Interpretation Free Text/Narrative:: [facility] Final Radiology Report Call: [phone] assistance Online chat: [email or web address] Name: SHERLEY LORENZO Age: 85Years F Date: 09/19/2020 SSN: -- : [id number] Study: CT ABDOMEN PELVIS W CONT Requesting Physician: Lotus Farmer Images: [id number] Addl Studies: Provided Clinical History: RUQ pain x2 nights; progressivly worse Contrast: With Contrast Medium: Isovue 300 Contrast Amount: 75 mL Contrast Method: Intravenous (IV) Page 1 of 2 PROCEDURE INFORMATION: Exam: CT Abdomen And Pelvis With Contrast Exam date and time: 09/19/2020 6:53 PM Age: 85 years old Clinical indication: Abdominal pain; Localized; Right upper quadrant (ruq); Prior surgery; Surgery date: 6+ months; Surgery type: Appendectomy, total hysterectomy; Patient HX: HX lung, pancreatic, liver, and kidney CA. ; Additional info: Ruq pain x2 nights; Progressivly worse TECHNIQUE: Imaging protocol: Computed tomography of the abdomen and pelvis with contrast. Radiation optimization: All CT scans at this facility use at least one of these dose optimization techniques: automated exposure control; mA and/or kV adjustment per patient size (includes targeted exams where dose is matched to clinical indication); or iterative reconstruction. Contrast material: ISOVUE 300; Contrast volume: 75 ml; Contrast route: INTRAVENOUS (IV); COMPARISON: MR Abdomen wo Cont 08/06/2019 8:58 AM FINDINGS: Lungs: Innumerable lung base nodules highly suspicious for metastatic disease. Largest nodule is in the left lower lobe with some lobular changes measuring 23 x 21 mm. Pleural spaces: No pleural effusion. Liver: Innumerable hepatic lesions consistent with metastatic disease. Mild hepatic enlargement. Portal vein and hepatic veins are patent. Gallbladder and bile ducts: Gallstone within the gallbladder. No gallbladder wall thickening or pericholecystic fluid. Pancreas: Complex cystic mass of the pancreatic tail measuring approximately 4.9 x 3.7 cm on series 2, image 30. Spleen: Nonspecific mild splenic enlargement. Splenic diameter of approximately 12 cm. SHERLEY LORENZO | Final Radiology Report CONFIDENTIALITY STATEMENT This report is intended only for use by the referring physician, and only in accordance with law. If you received this in error, call [phone]. Page 2 of 2 Adrenal glands: Nonspecific small nodules of the left adrenal gland are suggested. Anteriorly is a 10 x 7 mm soft tissue attenuation nodule. The lateral limb appears to have a small soft tissue nodule measuring 8 x 8 mm. Right adrenal gland is unremarkable. Kidneys and ureters: The kidneys bilaterally are unremarkable. Normal enhancement. No hydronephrosis. No calculi. Stomach and bowel: No gastric distention or outlet obstruction. Stomach is under distended. No definable edema. Small bowel loops are normal in course and caliber. Large bowel loops are unremarkable. There is colonic diverticulosis without acute diverticulitis. Appendix: No evidence of appendicitis. Intraperitoneal space: Unremarkable. No free air. No significant fluid collection. Vasculature: Coronary artery atherosclerosis. Mitral valve annulus calcium. Mild cardiac enlargement. Splenic vein and splenic artery appear to opacify normally. Atherosclerotic aortoiliac calcium. No aneurysm. Lymph nodes: Enlarged lymph node in the venus hepatis measuring 18 x 15 mm. Urinary bladder: Urinary bladder is unremarkable. Reproductive: Previous hysterectomy. Bones/joints: Degenerative lumbar spine disease. Degenerative 7 mm L4 anterolisthesis on L5. No lytic or blastic bone lesions as visualized. Severe spinal stenosis at L4-L5. Moderate to severe spinal stenosis at L3-L4. Soft tissues: Abdominal wall soft tissues are unremarkable. Minor fat containing umbilical hernia without evidence of strangulation. IMPRESSION: 1. Gallstone within a partially contracted gallbladder. No surrounding inflammation. No ductal dilatation. 2. Innumerable hepatic metastatic lesions. 3. Innumerable lung base metastatic lesions. 4. Complex pancreatic tail cystic mass. 5. Spleen is upper limits of normal in size to borderline enlarged. Splenic artery and vein appear patent. 6. Small left adrenal nodules. 7. 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 8. Coronary artery atherosclerosis. Mitral valve calcium. Thank you for allowing us to participate in the care of your patient. Dictated and Authenticated by: Kevon Mcdermott MD 09/19/2020 8:21 PM Central Time ([place] & [place]) Departure - Departure Time of Disposition: 20:29 Condition: Fair - Discharge Information *PRESCRIPTION DRUG MONITORING PROGRAM REVIEWED*: Not Applicable *COPY OF PRESCRIPTION DRUG MONITORING REPORT IN PATIENT YEE: Not Applicable Sepsis Event Note (ED) - Focused Exam Vital Signs: Vital Signs Temp Pulse Resp BP Pulse Ox 09/19/20 19:46 68 21 H 187/74 H 96 09/19/20 17:25 98.7 F 64 22 H 181/64 H 98"
[2020-09-19 17:51] LABS: ANION GAP 14.6 mEq/L (7-13)
[2020-09-19 18:20] LABS: PTT,PARTIAL THROMBOPLSTIN TIME 36.3 SEC (22.0-34.0)
[2020-09-19] MEDS ORDERED: GI Cocktail Oral Solution 30 ML PO ONE (18:22)
[2020-09-19] MEDS ORDERED: Iopamidol 612 MG/ML 100 ML Bottle IVPUSH ONE (19:10)
[2020-09-19 19:47] VITALS: BP 187/74; PULSE 68
--- NOTE | 2020-09-19 20:22 | CT ---
PROCEDURE INFORMATION: Exam: CT Abdomen And Pelvis With Contrast Exam date and time: 09/19/2020 6:53 PM Age: 85 years old Clinical indication: Abdominal pain; Localized; Right upper quadrant (ruq); Prior surgery; Surgery date: 6+ months; Surgery type: Appendectomy, total hysterectomy; Patient HX: HX lung, pancreatic, liver, and kidney CA. ; Additional info: Ruq pain x2 nights; Progressivly worse TECHNIQUE: Imaging protocol: Computed tomography of the abdomen and pelvis with contrast. Radiation optimization: All CT scans at this facility use at least one of these dose optimization techniques: automated exposure control; mA and/or kV adjustment per patient size (includes targeted exams where dose is matched to clinical indication); or iterative reconstruction. Contrast material: ISOVUE 300; Contrast volume: 75 ml; Contrast route: INTRAVENOUS (IV); COMPARISON: MR Abdomen wo Cont 08/06/2019 8:58 AM FINDINGS: Lungs: Innumerable lung base nodules highly suspicious for metastatic disease. Largest nodule is in the left lower lobe with some lobular changes measuring 23 x 21 mm. Pleural spaces: No pleural effusion. Liver: Innumerable hepatic lesions consistent with metastatic disease. Mild hepatic enlargement. Portal vein and hepatic veins are patent. Gallbladder and bile ducts: Gallstone within the gallbladder. No gallbladder wall thickening or pericholecystic fluid. Pancreas: Complex cystic mass of the pancreatic tail measuring approximately 4.9 x 3.7 cm on series 2, image 30. Spleen: Nonspecific mild splenic enlargement. Splenic diameter of approximately 12 cm. Adrenal glands: Nonspecific small nodules of the left adrenal gland are suggested. Anteriorly is a 10 x 7 mm soft tissue attenuation nodule. The lateral limb appears to have a small soft tissue nodule measuring 8 x 8 mm. Right adrenal gland is unremarkable. Kidneys and ureters: The kidneys bilaterally are unremarkable. Normal enhancement. No hydronephrosis. No calculi. Stomach and bowel: No gastric distention or outlet obstruction. Stomach is under distended. No definable edema. Small bowel loops are normal in course and caliber. Large bowel loops are unremarkable. There is colonic diverticulosis without acute diverticulitis. Appendix: No evidence of appendicitis. Intraperitoneal space: Unremarkable. No free air. No significant fluid collection. Vasculature: Coronary artery atherosclerosis. Mitral valve annulus calcium. Mild cardiac enlargement. Splenic vein and splenic artery appear to opacify normally. Atherosclerotic aortoiliac calcium. No aneurysm. Lymph nodes: Enlarged lymph node in the venus hepatis measuring 18 x 15 mm. Urinary bladder: Urinary bladder is unremarkable. Reproductive: Previous hysterectomy. Bones/joints: Degenerative lumbar spine disease. Degenerative 7 mm L4 anterolisthesis on L5. No lytic or blastic bone lesions as visualized. Severe spinal stenosis at L4-L5. Moderate to severe spinal stenosis at L3-L4. Soft tissues: Abdominal wall soft tissues are unremarkable. Minor fat containing umbilical hernia without evidence of strangulation. IMPRESSION: 1. Gallstone within a partially contracted gallbladder. No surrounding inflammation. No ductal dilatation. 2. Innumerable hepatic metastatic lesions. 3. Innumerable lung base metastatic lesions. 4. Complex pancreatic tail cystic mass. 5. Spleen is upper limits of normal in size to borderline enlarged. Splenic artery and vein appear patent. 6. Small left adrenal nodules. 7. 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 8. Coronary artery atherosclerosis. Mitral valve calcium.
== END 2020-09-19 20:53 | disposition home or self-care (01) ==
LOC: DL.ED 16:55
DX: K21.00 Gastro-esophageal reflux disease with esophagitis, without bleeding (principal); I48.91 Unspecified atrial fibrillation; E78.00 Pure hypercholesterolemia, unspecified; I10 Essential (primary) hypertension; M19.90 Unspecified osteoarthritis, unspecified site; E03.9 Hypothyroidism, unspecified; Z88.8 Allergy status to other drugs, medicaments and biological substances; Z79.82 Long term (current) use of aspirin; Z79.899 Other long term (current) drug therapy
CPT/HCPCS: 36415; 74177; 80053; 81001; 83605; 84484; 85025; 85610; 85730; 86140; 93005; 93010; 99284; 99284-25; A9270-GY; J1642; Q9967

== ENCOUNTER 2020-10-15 08:02 | Emergency (ER) | payer MEDICARE, BC ==
[2020-10-15 08:19] VITALS: BP 107/74; PULSE 61
[2020-10-15 09:12] LABS: ANION GAP 17.7 mEq/L (7-13)
--- NOTE | 2020-10-15 09:54 | EDM.PDOC ---
ED HPI GENERAL MEDICAL PROBLEM - General Chief Complaint: General Stated Complaint: [id number] HEART IN AFIB EXHAUSTION Time Seen by Provider: 10/15/20 09:45 Source of Information: Reports: Patient History Limitations: Reports: No Limitations - History of Present Illness INITIAL COMMENTS - FREE TEXT/NARRATIVE: This 85 yo female patient reports to the ED due to her heart going into irregular rhythm. The patient does have a history of atrial fibrillation. The patient reports her symptoms started this morning at 0430. The patient has a history of lung cancer with some increased difficulties breathing. Onset: Today Duration: Constant, Other (Resolved uppon arrival in the ED) Quality: Reports: Other Severity: Mild Improves with: Reports: None Worsens with: Reports: None Context: Reports: Other - Related Data Allergies Allergy/AdvReac Type Severity Reaction Status Date / Time alendronate sodium Allergy Unknown UNKNOWN Verified 10/15/20 08:20 atorvastatin calcium Allergy Unknown MUSCLE Verified 10/15/20 08:20 [From Lipitor] ACHES/PAINS caffeine Allergy Unknown UNKNOWN Verified 10/15/20 08:20 esomeprazole magnesium Allergy Unknown UNKNOWN Verified 10/15/20 08:20 [From Nexium] lansoprazole [From Prevacid] Allergy Unknown Diarrhea Verified 10/15/20 08:20 pravastatin sodium Allergy Unknown MUSCLE Verified 10/15/20 08:20 [From Pravachol] CRAMPS/SPAMS carboplatin Allergy Hives Verified 10/15/20 08:20 pantoprazole [From Protonix] Allergy Other Verified 10/15/20 08:20 potassium chloride AdvReac Nausea Verified 10/15/20 08:20 Home Meds: Home Meds Calcium Carbonate [Tums] 500 mg PO BEDTIME PRN 07/08/13 [History] LORazepam 0.5 mg PO BEDTIME PRN 07/08/13 [History] Levothyroxine Sodium 100 mcg PO ASDIRECTED 07/08/13 [History] Warfarin Sodium [Jantoven] 4 mg PO ASDIRECTED 07/08/13 [History] Furosemide 20 mg PO BID 06/28/15 [History] Rosuvastatin Calcium [Crestor] 10 mg PO BEDTIME 06/28/15 [History] Acetaminophen [Tylenol Extra Strength] 1,000 mg PO Q6H PRN 04/21/16 [History] Sotalol [Betapace] 80 mg PO BID 04/21/16 [History] Vit A/Vit C/Vit E/Zinc/Copper [Preservision] 1 tab PO DAILY 01/22/17 [History] Calcium Carbonate/Vitamin D3 [Calcium 600 + Vit D 200] 1 tab PO DAILY 04/02/17 [History] Ondansetron [Zofran] 8 mg PO Q8H PRN 03/24/19 [History] Sennosides [Senokot] 8.6 mg PO DAILY 03/24/19 [History] Past Medical History HEENT History: Reports: Impaired Vision, Macular Degeneration, Other (See Below) Other HEENT History: ringing in the ears to have a MRI. RECEIVES EYE INJECTIONS FOR MAC DEGENERATION. Dry macular degeneration Cardiovascular History: Reports: Afib, Heart Murmur, High Cholesterol, Hypertension, Stents Other Cardiovascular History: carotid stent Respiratory History: Reports: Other (See Below) Other Respiratory History: RIGHT UPPER LOBE Lung cancer Gastrointestinal History: Reports: Diverticulosis, GERD Genitourinary History: Reports: None CRUISE DIRECTOR History: Reports: , Spontaneous Musculoskeletal History: Reports: Arthritis, Back Pain, Chronic, Neck Pain, Chronic, Other (See Below) Other Musculoskeletal History: LYMPHEDEMA OF BILAT LE Neurological History: Reports: None Psychiatric History: Reports: Anxiety Endocrine/Metabolic History: Reports: Hypothyroidism Hematologic History: Reports: Anemia, Blood Transfusion(s) Immunologic History: Reports: Immunosuppression Oncologic (Cancer) History: Reports: Liver, Lung, Pancreatic, Other (See Below) Other Oncologic History: pelvic area, kidney Dermatologic History: Reports: Other (See Below) Other Dermatologic History: lipidema - Infectious Disease History Infectious Disease History: Reports: Chicken Pox, Measles, Mumps - Past Surgical History Head Surgeries/Procedures: Reports: None HEENT Surgical History: Reports: Adenoidectomy, Tonsillectomy Cardiovascular Surgical History: Reports: Carotid Endarterectomy, Other (See Below) Other Cardiovascular Surgeries/Procedures: Edema feet Respiratory Surgical History: Reports: Lung Resection Other Respiratory Surgeries/Procedures: R) lung resection GI Surgical History: Reports: Appendectomy, Colonoscopy, EGD Female Surgical History: Reports: Section, Hysterectomy Endocrine Surgical History: Reports: None Neurological Surgical History: Reports: None Musculoskeletal Surgical History: Reports: Other (See Below) Other Musculoskeletal Surgeries/Procedures:: Knee surgery Oncologic Surgical History: Reports: Lobectomy, Other (See Below) Other Oncologic Surgeries/Procedures: SKIN BIOPSY; RIGHT UPPER LOBECTOMY Dermatological Surgical History: Reports: Skin Biopsy Social & Family History - Family History Family Medical History: No Pertinent Family History Cardiac: Reports: Afib, Hypertension Oncologic: Reports: Bone, Lung - Tobacco Use Tobacco Use Status *Q: Never Tobacco User Second Hand Smoke Exposure: No - Caffeine Use Caffeine Use: Reports: None - Recreational Drug Use Recreational Drug Use: No ED ROS GENERAL - Review of Systems Review Of Systems: Comprehensive ROS is negative, except as noted in HPI. ED EXAM, GENERAL - Physical Exam Exam: See Below Exam Limited By: No Limitations General Appearance: Alert, WD/WN, No Apparent Distress, Thin Eye Exam: Bilateral Eye: EOMI, Normal Inspection, PERRL Ears: Normal External Exam, Normal Canal, Hearing Grossly Normal, Normal TMs Nose: Normal Inspection, Normal Mucosa, No Blood Throat/Mouth: Normal Inspection, Normal Lips, Normal Teeth, Normal Gums, Normal Oropharynx, Normal Voice, No Airway Compromise Head: Atraumatic, Normocephalic Neck: Normal Inspection, Supple, Non-Tender, Full Range of Motion Respiratory/Chest: No Respiratory Distress, Lungs Clear, Normal Breath Sounds, No Accessory Muscle Use, Chest Non-Tender Cardiovascular: Normal Peripheral Pulses, Regular Rate, Rhythm, No Edema, No Gallop, No JVD, No Murmur, No Rub GI/Abdominal: Normal Bowel Sounds, Soft, Non-Tender, No Organomegaly, No Distention, No Abnormal Bruit, No Mass (Female) Exam: Deferred Rectal (Female) Exam: Deferred Back Exam: Normal Inspection, Full Range of Motion, NT Extremities: Normal Inspection, Normal Range of Motion, Non-Tender, Normal Capillary Refill, No Pedal Edema Neurological: Alert, Oriented, CN II-XII Intact, Normal Cognition, Normal Gait, Normal Reflexes, No Motor/Sensory Deficits Psychiatric: Normal Affect, Normal Mood Skin Exam: Warm, Dry, Intact, Normal Color, No Rash Lymphatic: No Adenopathy #1 Interpretation EKG Date: 10/15/20 Time: 08:37 Rhythm: NSR Rate (Beats/Min): 72 Siren: Normal P-Wave: Present QRS: Normal ST-T: Normal QT: Normal Comparison: No Change Course - Vital Signs Last Recorded V/S: Last Vital Signs Temp 97.3 F 10/15/20 08:14 Pulse 61 07/24/21 08:14 Resp 16 10/15/20 08:14 BP 107/74 10/15/20 08:14 Pulse Ox 97 10/15/20 08:14 - Orders/Labs/Meds Labs: Laboratory Tests 10/15/20 10/15/20 Range/Units 08:46 08:46 WBC 10.0 (5.0-10.0) 10^3/uL RBC 4.45 (4.2-5.4) 10^6/uL Hgb 13.4 (12.0-16.0) g/dL Hct 39.8 (37.0-47.0) % MCV 89.4 (80-100) fL MCH 30.1 (27.0-34.0) pg MCHC 33.7 (33.0-35.0) g/dL Plt Count 189 (150-450) 10^3/uL Neut % (Auto) 65.3 (42.2-75.2) % Lymph % (Auto) 17.1 L (20.5-50.1) % Whitley % (Auto) 9.3 H (2-8) % Eos % (Auto) 7.8 H (1.0-3.0) % Baso % (Auto) 0.5 (0.0-1.0) % Sodium 142 (136-145) mmol/L Potassium 3.7 (3.5-5.1) mmol/L Chloride 102 (98-107) mmol/L Carbon Dioxide 26 (21-32) mmol/L Anion Gap 17.7 H (7-13) mEq/L BUN 21 H (7-18) mg/dL Creatinine 0.98 (0.55-1.02) mg/dL Est Cr Clr Drug Dosing 34.83 mL/min Estimated GFR (MDRD) 54 BUN/Creatinine Ratio 21.4 (No establ ref range) Glucose 125 H (70-99) mg/dL Calcium 9.1 (8.5-10.1) mg/dL Total Bilirubin 1.1 H (0.2-1.0) mg/dL AST 27 (15-37) U/L ALT 31 (14-59) U/L Alkaline Phosphatase 251 H (46-116) U/L Troponin I High Sens 14 (<=51) pg/mL Total Protein 7.5 (6.4-8.2) g/dL Albumin 3.3 L (3.4-5.0) g/dL Globulin 4.2 Albumin/Globulin Ratio 0.79 Departure - Departure Time of Disposition: 09:52 Disposition: Home, Self-Care 01 Condition: Fair Clinical Impression: Irregular heart beats - Discharge Information *PRESCRIPTION DRUG MONITORING PROGRAM REVIEWED*: Not Applicable *COPY OF PRESCRIPTION DRUG MONITORING REPORT IN PATIENT YEE: Not Applicable Forms: ED Department Discharge Care Plan Goals: The patient was advised of the examination, lab and EKG results during the visit. The patient's heart was in a normal sinus rhythm when the EKG was taken. The patient reports she feels very normal at this time. If the patient has any additional symptoms or concerns, the patient should either return to the emergency department or visit her primary care facility. Sepsis Event Note (ED) - Evaluation Sepsis Screening Result: No Definite Risk - Focused Exam Vital Signs: Vital Signs Temp Pulse Resp BP Pulse Ox 10/15/20 08:14 97.3 F 61 16 107/74 97
== END 2020-10-15 09:55 | disposition home or self-care (01) ==
LOC: DL.ED 08:02
DX: R00.9 Unspecified abnormalities of heart beat (principal); I48.91 Unspecified atrial fibrillation; E78.00 Pure hypercholesterolemia, unspecified; I10 Essential (primary) hypertension; E03.9 Hypothyroidism, unspecified; Z88.8 Allergy status to other drugs, medicaments and biological substances; Z79.899 Other long term (current) drug therapy
CPT/HCPCS: 36415; 80053; 84484; 85025; 93005; 93010; 99284; 99285-25